=== PATIENT | female | born 1990 ===

== ENCOUNTER 2023-01-03 08:00 | Outpatient (CLI) | payer MEDICAID ==
[2023-01-03 18:25] LABS: H. PYLORIS ANTIGEN STL POSITIVE (Negative)
[2023-01-05 16:08] LABS: GIARDIA LAMBLIA AG EIA Negative (Negative)
== END 2023-01-03 23:59 | disposition home or self-care (01) ==
LOC: LAB.R 08:00
PROVIDERS: ATTEND Physician Assistant Medical
DX: R19.7 Diarrhea, unspecified (principal); R10.9 Unspecified abdominal pain
CPT/HCPCS: 87045; 87046; 87177; 87209; 87329; 87338; 87427; 87493

== ENCOUNTER 2023-01-03 12:18 | Outpatient (CLI) | payer MEDICAID ==
--- NOTE | 2023-01-03 13:37 | XRAY Report ---
PROCEDURE: Abdomen 2 View X-Ray INDICATIONS: ABDOMINAL PAIN TECHNIQUE: 2 views of the abdomen were acquired. COMPARISON: None. FINDINGS: Surgical changes and devices: None. Bowel: No pneumoperitoneum. The bowel gas pattern is normal. Stool load within normal limits. Soft tissues: No masses; visualized solid organ contours appear normal in size. No suspicious abdom inal calcifications. Bones: No suspicious bony abnormalities. IMPRESSION: There is a nonobstructive bowel gas pattern seen. If the symptoms persist or worsen, please consider a dedicated follow-up CT for further evaluation. Reviewed by: Faisal Au MD on 01/03/2023 12:36 PM [facility] Approved by: Faisal Au MD on 01/03/2023 12:36 PM [facility] Station ID: [id number]
== END 2023-01-03 23:59 | disposition home or self-care (01) ==
LOC: DI.S 12:18
PROVIDERS: ATTEND Physician Assistant Medical
DX: R10.9 Unspecified abdominal pain (principal)

== ENCOUNTER 2023-02-13 10:02 | Emergency (ER) | payer MEDICAID ==
[2023-02-13 10:20] VITALS: O2SAT 100
--- NOTE | 2023-02-13 11:33 | ED Physician Documentation ---
History of Present Illness - Stated complaint Stated Complaint: HEAD INJ/PX - Chief complaint Chief Complaint: Trauma Hd/Nk - Additonal information Additional information: History obtained with a Yi language teacher. History and exam was exceedingly difficult to obtain. 32-year-old female presents emergency department for evaluation of headache and right-sided hearing loss. Was in the shower yesterday when she slipped and fell . She struck the right side of her head. States that she vomited immediately thereafter but has had muffled or near loss of hearing since some tinnitus. Headache has not resolved. She did take Motrin and Tylenol. No history of similar. Currently taking a course of medications for a stomach infection that I believed to be H. pylori based on the medications she is taking Review of Systems Constitutional: denies: Fever Ears: reports: Loss of hearing, Tinnitus/ringing (right ear). denies: Ear pain, Drainage/discharge Nose: reports: Reviewed and negative Throat: reports: Reviewed and negative GI: reports: Vomiting Neurologic: reports: Headache PD PAST MEDICAL HISTORY - Past Medical History Past Medical History: Yes GI: GERD - Past Surgical History Past Surgical History: No - Present Medications Home Medications: Ambulatory Orders Medication Instructions Recorded Confirmed Amoxicillin 1,000 mg PO BID 02/13/23 02/13/23 Clarithromycin [Biaxin] 500 mg PO BID 02/13/23 02/13/23 Omeprazole Magnesium 20 mg PO DAILY 02/13/23 02/13/23 - Allergies Allergies/Adverse Reactions: Allergies Allergy/AdvReac Type Severity Reaction Status Date / Time No Known Drug Allergies Allergy Verified 02/13/23 10:14 - Social History Does the pt smoke?: No Smoking Status: Never smoker Does the pt drink ETOH?: No Does the pt have substance abuse?: No PD ED PE NORMAL - General General: Alert and oriented X 3, No acute distress, Well developed/nourished - HEENT HEENT: Atraumatic, PERRL, EOMI, Ears normal, Moist mucous membranes, Other (No mastoid tenderness elicited. Negative hemotympanums, groves sign and raccoon eyes) - Neck Neck: Supple, no meningeal sign, No adenopathy - Cardiac Cardiac: RRR - Respiratory Respiratory: Clear bilaterally - Abdomen Abdomen: Normal bowel sounds, Soft - Derm Derm: Warm and dry - Extremities Extremities: No deformity - Neuro Neuro: Alert and oriented X 3, membership solicitor 2-12 intact, No motor deficit, No sensory deficit, Normal speech, Other (Normal gait, normal heel-toe, normal finger-nose) Eye Opening: Spontaneous Motor: Obeys Commands Verbal: Oriented GCS Score: 15 Results - Vitals Vitals: Vital Signs - 24 hr 02/13/23 10:08 Temperature 37.3 C Heart Rate 83 Respiratory 16 Rate Blood Pressure 136/68 H O2 Saturation 100 Oxygen O2 Source Room air - Labs Labs: Laboratory Tests 02/13/23 11:39 Urine HCG, Qual NEGATIVE - Rads (name of study) CT head Relevant Findings:: Final report received (no acute intracranial process) IAC CT Relevant Findings:: Final report received (Normal CT of the temporal bones. No fracture.) PD Medical Decision Making - ED course Complexity details: reviewed results, re-evaluated patient, d/w patient ED course: 32-year-old female presents emergency department for evaluation of acute onset headache and sudden loss of hearing in the right ear after she fell in the shower yesterday. No history of similar in the past. Here in the emergency department she had an unremarkable neurological exam sparing some muffled and loss of hearing in the right ear. The history and mechanism was suggestive possibly of disruption of the auditory canal, mastoid bones. Other differentials include inflammation around the auditory nerve. I did do CT of the head without contrast that showed no obvious abnormalities. An IAC also showed no obvious broken bones. I discussed the CT imaging findings with the patient and her . I recommended follow-up with the ear nose throat if the symptoms do not gently improve over the next week. Otherwise recommended Tylenol and ibuprofen for discomfort. The usual emergent return precautions were discussed for worsening symptoms. Departure - Departure Disposition: 01 Home, Self Care Clinical Impression: Hearing loss associated with syndrome of right ear Fall Qualifiers: Encounter type: initial encounter Qualified Code(s): W19.XXXA - Unspecified fall, initial encounter Headache Qualifiers: Headache type: unspecified Headache chronicity pattern: acute headache Intractability: not intractable Qualified Code(s): R51.9 - Headache, unspecified Condition: Stable Record reviewed to determine appropriate education?: Yes Comments: you fell in the shower and developed a headache with some hearing loss. The CTs of your head and around your auditory or ear bones were normal. Our hope is that the headache and loss of hearing will improve over the next week. If it does not please follow closely with your primary doctor and request referral to an ear nose throat doctor. Please take Tylenol or ibuprofen for discomfort. Return to the ER for any fainting episodes, uncontrolled vomiting or difficulty walking Se jessica en la ducha y desarroll dolor de ashley con algo de prdida auditiva. Las tomografas computarizadas de la ashley y alrededor de los huesos auditivos o del odo concepción normales. Nuestra gloria es que el dolor de ashley y la prdida de audicin mejoren sangeetha la prxima semana. Si no es as, siga de cerca con mcclellan mdico de cabecera y solicite la derivacin a un otorrinolaringlogo. [place] Tylenol o ibuprofeno para las molestias. Regrese a la bushra de emergencias por cualquier episodio de desmayos, vmitos incontrolables o dificultad para caminar Forms: PCP List
[2023-02-13 11:48] LABS: HCG UR QUAL NEGATIVE
--- NOTE | 2023-02-13 13:20 | CT Report ---
PROCEDURE: HEAD WO INDICATIONS: loss of hearing after fall TECHNIQUE: Noncontrast 4.5 mm thick angled axial sections acquired from the foramen magnum to the vertex. For r adiation dose reduction, the following was used: automated exposure control, adjustment of mA and/or kV according to patient size. COMPARISON: None. FINDINGS: Image quality: Excellent. CSF spaces: Basal cisterns are patent. No extra-axial fluid collections. Ventricles are normal in size and shape. Brain: No midline shift. No intracranial masses or hemorrhage. Martinez-white matter interface is norm al. Skull and face: Calvarium and visualized facial bones are intact, without suspicious lesions. Sinuses: Visualized sinuses and mastoids are clear. IMPRESSION: ] 1. No acute intracranial process. Reviewed by: Jerica Giraldo MD on 02/13/2023 1:18 PM PST Approved by: Jerica Giraldo MD on 02/13/2023 1:18 PM [facility] Station ID: [id number]
--- NOTE | 2023-02-13 13:59 | CT Report ---
PROCEDURE: CT temporal bones without contrast INDICATIONS: 32-year-old female with traumatic right-sided hearing loss COMPARISON: None. TECHNIQUE: Helical axial CT of the temporal bones was obtained without contrast and reformatted in m ultiple planes. Radiation dose reduction was achieved using automated exposure control and adjustmen t of mA and/or kV according to patient size FINDINGS: Right Temporal Bone: External auditory canal: Patent without debris. Scutum is sharp. Ossicular chain and middle ear: Ossicular chain intact. Prussak space and sinus tympani are clear. Oval and round window niche are clear. Tegmen tympani covers both the middle and inner ear without erosions. Inner ear otic capsule: Cochlea, semicircular canals, and vestibular capsules are appropriately form ed and covered. Normal bony mineralization noted without lytic foci. Vestibular and cochlear aquedu cts unremarkable. Facial nerve canal: Unremarkable. Internal auditory canal: Well-defined without expansion or erosion. Carotid canal and jugular bulb: Well defined. No high-riding jugular bulb. Mastoid air cells: Clear. Aditus ad antrum unremarkable. Tegmen mastoideum intact. Temporomandibular joint: Unremarkable Left Temporal Bone: External auditory canal: Patent without debris. Scutum is sharp. Ossicular chain and middle ear: Ossicular chain intact. Prussak space and sinus tympani are clear. Oval and round window niche are clear. Tegmen tympani covers both the middle and inner ear without erosions. Inner ear otic capsule: Cochlea, semicircular canals, and vestibular capsules are appropriately form ed and covered. Normal bony mineralization noted without lytic foci. Vestibular and cochlear aquedu cts unremarkable. Facial nerve canal: Unremarkable. Internal auditory canal: Well-defined without expansion or erosion. Carotid canal and jugular bulb: Well defined. No high-riding jugular bulb. Mastoid air cells: Clear. Aditus ad antrum unremarkable. Tegmen mastoideum intact. Temporomandibular joint: Unremarkable IMPRESSION: Normal CT of the temporal bones. No fracture Reviewed by: Tye Hamilton MD on 02/13/2023 12:58 PM [place] Approved by: Tye Hamilton MD on 02/13/2023 12:58 PM [place] Station ID: [id number]
[2023-02-13 14:37] VITALS: BP 136/78
== END 2023-02-13 14:31 | disposition home or self-care (01) ==
LOC: ED 10:02
DX: R51.9 Headache, unspecified (principal); H91.91 Unspecified hearing loss, right ear
CPT/HCPCS: 81025; 99283; 99284

== ENCOUNTER 2023-03-01 00:42 | Emergency (ER) | payer MEDICAID ==
[2023-03-01] MEDS ORDERED: SODIUM CHLORIDE 0.9% 2,177.25 ML IV STA (01:14)
[2023-03-01] MEDS ORDERED: KETOROLAC 30 MG/ML VIAL IVP STA (01:16)
[2023-03-01] MEDS ORDERED: ACETAMINOPHEN 325 MG TABLET PO STA (01:16)
[2023-03-01 01:27] LABS: BASOPHILS # (AUTO) 0.1 10^3/uL (0.0-0.1); BASOPHILS % (AUTO) 0.4 %; EOSINOPHILS # (AUTO) 0.1 10^3/uL (0.0-0.7); EOSINOPHILS % (AUTO) 0.8 %; HCT - HEMATOCRIT 39.7 % (37.0-47.0); HGB - HEMOGLOBIN 13.3 g/dL (12.0-16.0); LYMPHOCYTES # (AUTO) 1.8 10^3/uL (1.5-3.5); LYMPHOCYTES % (AUTO) 10.4 %; MEAN CORPUSCULAR HEMOGLOBIN 28.5 pg (27.0-31.0); MEAN CORPUSCULAR HGB CONC 33.5 g/dL (32.0-36.0); MEAN PLATELET VOLUME 8.7 fL (7.9-10.8); MONOCYTES # (AUTO) 0.4 10^3/uL (0.0-1.0); NEUTROPHILS # (AUTO) 14.6 10^3/uL (1.5-6.6); NEUTROPHILS % (AUTO) 85.7 %; NRBC ABSOLUTE COUNT (AUTO) 0.02 x10^3/uL; NUCLEATED RED BLOOD CELLS AUTO 0.1 /100WBC; PLT - PLATELET COUNT 225 10^3/uL (130-450); RED BLOOD COUNT 4.67 10^6/uL (4.20-5.40); RED CELL DISTRIBUTION WIDTH 13.2 % (12.0-15.0); WHITE BLOOD COUNT 17.1 x10^3/uL (4.8-10.8)
[2023-03-01] MEDS ORDERED: ONDANSETRON 4 MG/2 ML VIAL IVP STA (01:28)
[2023-03-01] MEDS ORDERED: FAMOTIDINE 20 MG/2 ML VIAL IVP STA (01:28)
--- NOTE | 2023-03-01 01:28 | ED Physician Documentation ---
PD HPI ABD PAIN - Stated complaint Stated Complaint: BODY PX - Chief complaint Chief Complaint: Abd Pain - History obtained from History obtained from: Patient - Additional information Additional information: 32yF previously health except for "stomach infection" 2 months ago requiring antibiotic course, p/w diffuse abdominal pain radiating to the back, fever/chills, n/v/d and dysuria since yesterday afternoon. denies chest pain, soa, uri symptoms. PD PAST MEDICAL HISTORY - Past Medical History Past Medical History: No GI: GERD - Past Surgical History Past Surgical History: No - Present Medications Home Medications: Ambulatory Orders Medication Instructions Recorded Confirmed Amoxicillin 1,000 mg PO BID 02/13/23 02/13/23 Clarithromycin [Biaxin] 500 mg PO BID 02/13/23 02/13/23 Omeprazole Magnesium 20 mg PO DAILY 02/13/23 02/13/23 Cefpodoxime Proxetil [Vantin] 200 mg PO Q12H #28 tablet 03/01/23 Ketorolac [Toradol] 10 mg PO Q6H PRN #20 tablet 03/01/23 Ondansetron Odt [Zofran] 4 mg TL Q6H PRN #10 tablet 03/01/23 - Allergies Allergies/Adverse Reactions: Allergies Allergy/AdvReac Type Severity Reaction Status Date / Time No Known Drug Allergies Allergy Verified 02/13/23 10:14 - Social History Does the pt smoke?: No Smoking Status: Never smoker Does the pt drink ETOH?: No Does the pt have substance abuse?: No PD ED PE NORMAL - Vitals Vital signs reviewed: Yes - General General: Alert and oriented X 3, Well developed/nourished, Other (uncomfortable appearing) - HEENT HEENT: Atraumatic, PERRL, EOMI, Moist mucous membranes, Pharynx benign - Neck Neck: Supple, no meningeal sign - Cardiac Cardiac: RRR - Respiratory Respiratory: No respiratory distress, Clear bilaterally - Abdomen Abdomen: Other (diffusely ttp) - Derm Derm: Other (sweaty and flushed) Results - Vitals Vitals: Vital Signs - 24 hr 03/01/23 03/01/23 03/01/23 01:05 01:19 01:44 Temperature 37.9 C Heart Rate 147 H 127 H 120 H Respiratory 24 38 H 36 H Rate Blood Pressure 123/69 117/73 O2 Saturation 99 99 99 11/30/23 11/30/23 11/30/23 02:14 02:44 04:00 Temperature 98.8 C H Heart Rate 103 H 111 H 103 H Respiratory 28 H 28 H 25 H Rate Blood Pressure 113/68 114/69 97/62 O2 Saturation 100 100 100 03/01/23 03/01/23 04:30 05:00 Temperature Heart Rate 110 H 100 Respiratory 26 H 29 H Rate Blood Pressure 99/72 98/66 O2 Saturation 99 99 Oxygen O2 Source Room air - Labs Labs: Laboratory Tests 03/01/23 03/01/23 03/01/23 01:15 01:15 01:19 WBC 17.1 H RBC 4.67 Hgb 13.3 Hct 39.7 MCV 85.0 MCH 28.5 MCHC 33.5 RDW 13.2 Plt Count 225 MPV 8.7 Neut # (Auto) 14.6 H Lymph # (Auto) 1.8 [place] # (Auto) 0.4 Eos # (Auto) 0.1 Baso # (Auto) 0.1 Absolute Nucleated RBC 0.02 Nucleated RBC % 0.1 Sodium Potassium Chloride Carbon Dioxide Anion Gap BUN Creatinine Estimated GFR (MDRD) Glucose Lactic Acid Calcium Total Bilirubin AST ALT Alkaline Phosphatase Total Protein Albumin Globulin Albumin/Globulin Ratio Urine Color YELLOW Urine Clarity HAZY Urine pH 6.0 Ur Specific [place] 1.020 Urine Protein 100 H Urine Glucose (UA) NEGATIVE Urine Ketones NEGATIVE Urine Occult Blood MODERATE H Urine Nitrite POSITIVE H Urine Bilirubin NEGATIVE Urine Urobilinogen 1 (NORMAL) Ur Leukocyte Esterase SMALL H Urine RBC 0-5 Urine WBC >25 H Ur Squamous Epith Cells FEW Squamous Urine Bacteria Moderate H Urine Culture Comments INDICATED Urine HCG, Qual NEGATIVE 03/01/23 03/01/23 01:19 01:19 WBC RBC Hgb Hct MCV MCH MCHC RDW Plt Count MPV Neut # (Auto) Lymph # (Auto) [place] # (Auto) Eos # (Auto) Baso # (Auto) Absolute Nucleated RBC Nucleated RBC % Sodium 135 Potassium 2.9 L Chloride 106 Carbon Dioxide 19 L Anion Gap 10.0 BUN 15 Creatinine 0.7 Estimated GFR (MDRD) 98 Glucose 164 H Lactic Acid 1.7 Calcium 8.9 Total Bilirubin 1.0 AST 47 H ALT 62 H Alkaline Phosphatase 175 H Total Protein 6.5 Albumin 3.7 Globulin 2.8 Albumin/Globulin Ratio 1.3 Urine Color Urine Clarity Urine pH Ur Specific [place] Urine Protein Urine Glucose (UA) Urine Ketones Urine Occult Blood Urine Nitrite Urine Bilirubin Urine Urobilinogen Ur Leukocyte Esterase Urine RBC Urine WBC Ur Squamous Epith Cells Urine Bacteria Urine Culture Comments Urine HCG, Qual PD Medical Decision Making - ED course ED course: 32yF presents to the ed with n/v/d and dysuria with abdominal pain radiating to the back and fever at triage. cbc, abdominal panel, lactic acid, blood cultures, u/a and hcg ordered as well as CT a/p. provided patient with 30cc/kg ivf, IV toradol with pain relief, oral tylenol for fever, zofran with relief of nausea. 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 rocephin IV ordered. WBC 17.1, leukocytosis 2/2 uti. also with low potassium of 2.9 likely 2/2 vomiting, which was repleted with oral and IV potassium. CT showed pyelonephritis and pyelitis as well as diverticulosis. 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 antibiotics, pain meds, nausea meds sent to pharmacy. return precautions given. Departure - Departure Clinical Impression: Pyelonephritis, Pyelitis, Diverticulosis Condition: Stable Instructions: Pyelonephritis Dc, ED Diverticulosis Prescriptions: Ketorolac [Toradol] 10 mg PO Q6H PRN #20 tablet PRN Reason: Pain Cefpodoxime Proxetil [Vantin] 200 mg PO Q12H #28 tablet Ondansetron Odt [Zofran] 4 mg TL Q6H PRN #10 tablet PRN Reason: Nausea / Vomiting Comments: You were seen in the emergency department for kidney infection. Antibiotics, pain medicine, and nausea medicine were sent electronically to [facility] in [place]. Please follow-up with your primary care provider and return to the emergency department if you have any new or worsening symptoms or other concerns. Lo atendieron en el departamento de emergencias por trini infeccin renal. Se enviaron electrnicamente antibiticos, analgsicos y medicamentos para las nuseas a [facility] en [place]. Christine un seguimiento con mcclellan proveedor de atencin primaria y regrese al departamento de emergencias si tiene algn sntoma nuevo o que empeora u otras inquietudes. Forms: PCP List
[2023-03-01 01:33] LABS: BILIRUBIN,URINE NEGATIVE (NEGATIVE); GLUCOSE, URINE (UA) NEGATIVE (NEGATIVE); KETONES,URINE (UA) NEGATIVE (NEGATIVE); LEUKOCYTE ESTERASE, URINE SMALL (NEGATIVE); NITRITE,URINE POSITIVE (NEGATIVE); OCCULT BLOOD,URINE MODERATE (NEGATIVE); PROTEIN,URINE 100 mg/dL (NEGATIVE); UROBILINOGEN,URINE 1 (NORMAL) E.U./dL (NORMAL)
[2023-03-01 01:34] LABS: CLARITY,URINE HAZY (CLEAR)
[2023-03-01 01:40] LABS: BACTERIA,URINE Moderate /HPF (None Seen); HCG UR QUAL NEGATIVE; RBC,URINE 0-5 /HPF (0-5); SQUAMOUS EPITHELIAL CELL,UR FEW Squamous (<= Few); WBC,URINE >25 /HPF (0-5)
[2023-03-01 01:45] LABS: ALBUMIN 3.7 g/dL (3.2-5.5)
[2023-03-01 02:31] LABS: ALBUMIN/GLOBULIN RATIO 1.3 (1.0-2.2); CALCIUM 8.9 mg/dL (8.5-10.3); CREATININE 0.7 mg/dL (0.6-1.3); POTASSIUM 2.9 mmol/L (3.5-4.5); TOTAL PROTEIN 6.5 g/dL (6.4-8.9)
[2023-03-01] MEDS ORDERED: POTASSIUM CHLORIDE 20 MEQ/15 ML UDC PO STA (02:31)
[2023-03-01] MEDS ORDERED: cefTRIAXone 2 GM in SODIUM CHLORIDE 0.9% MINIBAG 100 ML IV STA (02:32)
[2023-03-01] MEDS ORDERED: POTASSIUM CHLOR 10 MEQ/100 ML 10 MEQ/100 ML BAG IV STA (02:32)
[2023-03-01] MEDS ORDERED: SODIUM CHLORIDE 0.9% 1,000 ML IV STA ×2 (03:29→05:15)
[2023-03-01] MEDS ORDERED: iohexoL-300 100 ML VIAL IVP ONE (04:23)
[2023-03-01] MEDS ORDERED: MORPHINE 2 MG/ML CARPUJECT IVP STA (04:40)
[2023-03-01 07:03] VITALS: BP 102/69; O2SAT 98
--- NOTE | 2023-03-01 10:07 | CT Report ---
PROCEDURE: ABDOMEN/PELVIS W INDICATIONS: diffuse abdominal pain, dysuria, n/v/d CONTRAST: Omni 300 100ml TECHNIQUE: After the administration of intravenous contrast, 5 mm thick sections acquired from the diaphragms to the symphysis. 5 mm thick coronal and sagittal reformats were acquired. For radiation dose reducti on, the following was used: automated exposure control, adjustment of mA and/or kV according to avis ent size. COMPARISON: None FINDINGS: Image quality: Excellent. Lung bases and heart: Unremarkable. Liver: Moderate diffuse hepatic steatosis. Gallbladder and biliary tree: No radiopaque stones or wall thickening. No biliary dilation. Spleen: No splenomegaly. Pancreas: No pancreatic ductal dilation. Adrenals: No adrenal nodule. Kidneys and ureters: The right kidney has inhomogeneous enhancement, with vague areas of hypoenhancem ent suggesting probable acute pyelonephritis. There is mild enhancement of the right ureter suggestin g ureteritis. Left kidney and ureter are unremarkable. The bladder is unremarkable. Bowel and peritoneum: No bowel distension. No pathologic free fluid. Lymph nodes: No central or retroperitoneal adenopathy. Vessels: No infrarenal aortic aneurysm. PELVIS Reproductive organs: Unremarkable. Bladder: No abnormal wall thickening, accounting for underdistension. Pelvic lymph nodes: No pelvic adenopathy by size criteria. Bones: No aggressive osseous abnormality. Other: No significant ventral or inguinal hernia. IMPRESSION: 1. Right pyelonephritis and ureteritis. 2. Moderate diffuse hepatic steatosis. Findings are concordant with preliminary interpretation provided by [facility]. Reviewed by: Joshua Couch MD on 03/01/2023 10:06 AM [facility] Approved by: Joshua Couch MD on 03/01/2023 10:06 AM PST Station ID: [id number]
== END 2023-03-01 07:07 | disposition home or self-care (01) ==
LOC: ED 00:42
DX: N12 Tubulo-interstitial nephritis, not specified as acute or chronic (principal); K57.90 Diverticulosis of intestine, part unspecified, without perforation or abscess without bleeding
CPT/HCPCS: 36415; 80053; 81001; 81025; 83605; 85025; 87040; 87077; 87086; 87150; 87181; 96365; 96366; 96367; 96375; 99285

== ENCOUNTER 2023-03-01 16:49 | Inpatient (IN) | payer MEDICAID ==
[2023-03-01] MEDS ORDERED: MEROPENEM 1 GM in SODIUM CHLORIDE 0.9% MINIBAG 100 ML IV STA (17:08)
[2023-03-01] MEDS ORDERED: SODIUM CHLORIDE 0.9% 1,000 ML IV STA (17:17)
[2023-03-01] MEDS ORDERED: HYDROmorphone 1 MG/ML CARPUJECT IVP STA (17:17)
--- NOTE | 2023-03-01 17:20 | ED Physician Documentation ---
History of Present Illness - Stated complaint Stated Complaint: BACK PX - Chief complaint Chief Complaint: Back Pain - History obtained from History obtained from: Patient - History of Present Illness Pain level max: 8 Pain level now: 8 - Additonal information Additional information: 32-year-old female, Chinese-speaking presents to the emergency department with right-sided flank pain for several days. Seen here last night and diagnosed with pyelonephritis. Had a CT scan at that time as well. Heart rate had decreased and fever had resolved last night. Her blood culture is positive for E. coli with ESBL. 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 Therefore she was called back to the emergency department. She is still having pain and fever. Review of Systems Constitutional: reports: Fever, Chills Throat: denies: Sore throat Cardiac: denies: Chest pain / pressure, Palpitations Respiratory: denies: Cough GI: reports: Nausea, Vomiting. denies: Diarrhea, Hematemesis, Bloody / black stool Skin: denies: Rash Musculoskeletal: denies: Neck pain, Back pain, Extremity pain Neurologic: denies: Headache PD PAST MEDICAL HISTORY - Past Medical History Past Medical History: Yes GI: GERD - Past Surgical History Past Surgical History: No - Present Medications Home Medications: Ambulatory Orders Medication Instructions Recorded Confirmed Amoxicillin 1,000 mg PO BID 02/13/23 02/13/23 Clarithromycin [Biaxin] 500 mg PO BID 02/13/23 02/13/23 Omeprazole Magnesium 20 mg PO DAILY 02/13/23 02/13/23 Cefpodoxime Proxetil [Vantin] 200 mg PO Q12H #28 tablet 03/01/23 Ketorolac [Toradol] 10 mg PO Q6H PRN #20 tablet 03/01/23 Ondansetron Odt [Zofran] 4 mg TL Q6H PRN #10 tablet 03/01/23 - Allergies Allergies/Adverse Reactions: Allergies Allergy/AdvReac Type Severity Reaction Status Date / Time No Known Drug Allergies Allergy Verified 03/01/23 17:06 - Living Situation Living Situation: reports: With family Living Arrangement: reports: At home - Social History Does the pt smoke?: No Smoking Status: Never smoker Does the pt drink ETOH?: No Does the pt have substance abuse?: No PD ED PE NORMAL - Vitals Vital signs reviewed: Yes - General General: Alert and oriented X 3, No acute distress - HEENT HEENT: PERRL, Moist mucous membranes - Neck Neck: Supple, no meningeal sign - Cardiac Cardiac: RRR, Strong equal pulses - Respiratory Respiratory: No respiratory distress, Clear bilaterally - Abdomen Abdomen: Soft, Non tender, Non distended - Back Back: Other (Right-sided CVA tenderness. No left CVA tenderness) - Derm Derm: Warm and dry - Extremities Extremities: No edema, No calf tenderness / cord - Neuro Neuro: Alert and oriented X 3 - Psych Psych: Normal mood, Normal affect Results - Vitals Vitals: Vital Signs - 24 hr 03/01/23 16:50 Temperature 38.2 C H Heart Rate 120 H Respiratory 17 Rate Blood Pressure 126/77 O2 Saturation 100 Oxygen O2 Source Room air - Labs Labs: Laboratory Tests 03/01/23 03/01/23 03/01/23 17:17 17:17 17:17 WBC 21.4 H RBC 4.21 Hgb 12.0 Hct 36.9 L MCV 87.6 MCH 28.5 MCHC 32.5 RDW 13.9 Plt Count 127 L MPV 9.7 Neut # (Auto) Not Reportable Lymph # (Auto) Not Reportable [place] # (Auto) Not Reportable Eos # (Auto) Not Reportable Baso # (Auto) Not Reportable Absolute Nucleated RBC Not Reportable Total Counted 100 Band Neuts % (Manual) 7 Abnorm Lymph % (Manual) 0 Nucleated RBC % Not Reportable Neutrophils # (Manual) 17.5 H Lymphocytes # (Manual) 3.4 Monocytes # (Manual) 0.4 Eosinophils # (Manual) 0.0 Basophils # (Manual) 0.0 Differential Comment MANUAL DIFFERENTIAL Platelet Estimate DECREASED (<130,000) Platelet Morphology NORMAL APPEARANCE RBC Morph Micro Appear NORMAL APPEARANCE Sodium 134 L Potassium 3.7 Chloride 108 Carbon Dioxide 20 L Anion Gap 6.0 BUN 7 Creatinine 0.6 Estimated GFR (MDRD) 117 Glucose 132 H Lactic Acid 2.0 Calcium 8.5 Total Bilirubin 0.7 AST 33 ALT 51 Alkaline Phosphatase 148 H Total Protein 5.9 L Albumin 3.3 Globulin 2.6 Albumin/Globulin Ratio 1.3 Lipase 25 Procalcitonin Immunoas Urine Color Urine Clarity Urine pH Ur Specific [place] Urine Protein Urine Glucose (UA) Urine Ketones Urine Occult Blood Urine Nitrite Urine Bilirubin Urine Urobilinogen Ur Leukocyte Esterase Urine RBC Urine WBC Ur Squamous Epith Cells Amorphous Sediment Urine Bacteria Ur Microscopic Review Urine Culture Comments 03/01/23 03/01/23 17:17 17:22 WBC RBC Hgb Hct MCV MCH MCHC RDW Plt Count MPV Neut # (Auto) Lymph # (Auto) [place] # (Auto) Eos # (Auto) Baso # (Auto) Absolute Nucleated RBC Total Counted Band Neuts % (Manual) Abnorm Lymph % (Manual) Nucleated RBC % Neutrophils # (Manual) Lymphocytes # (Manual) Monocytes # (Manual) Eosinophils # (Manual) Basophils # (Manual) Differential Comment Platelet Estimate Platelet Morphology RBC Morph Micro Appear Sodium Potassium Chloride Carbon Dioxide Anion Gap BUN Creatinine Estimated GFR (MDRD) Glucose Lactic Acid Calcium Total Bilirubin AST ALT Alkaline Phosphatase Total Protein Albumin Globulin Albumin/Globulin Ratio Lipase Procalcitonin Immunoas 12.53 H* Urine Color YELLOW Urine Clarity HAZY Urine pH 7.0 Ur Specific [place] 1.020 Urine Protein 30 H Urine Glucose (UA) NEGATIVE Urine Ketones NEGATIVE Urine Occult Blood MODERATE H Urine Nitrite NEGATIVE Urine Bilirubin NEGATIVE Urine Urobilinogen 0.2 (NORMAL) Ur Leukocyte Esterase NEGATIVE Urine RBC TNTC H Urine WBC 11-25 H Ur Squamous Epith Cells FEW Squamous Amorphous Sediment Few Urine Bacteria Few Ur Microscopic Review INDICATED Urine Culture Comments INDICATED PD Medical Decision Making - ED course Complexity details: reviewed results, re-evaluated patient, considered differential, d/w patient ED course: 32-year-old female with pyelonephritis diagnosed last night, CT scan consistent with pyelonephritis as well last night. Had a positive blood culture with ESBL E. coli. Started on meropenem here. She is still having fevers. Blood cultures redrawn. We will admit the patient for IV antibiotics. Not in severe sepsis at this time. She is tachycardic, not hypotensive. Pain well- controlled. Discussed the case with Dr. Salazar, hospitalist who accepts This document was made in part using voice recognition software. While efforts are made to proofread this document, sound alike and grammatical errors may occur. Departure - Departure Disposition: 66 [facility] DC/Xfer Clinical Impression: Pyelonephritis, Bacteremia Condition: Stable
--- NOTE | 2023-03-01 17:34 | HISTORY & PHYSICAL EXAMINATION ---
Chief Complaint - Chief Complaint Chief Complaint: Called back because blood cultures turned positive History of Present Illness - Admitted From Admitted From:: ED - History Obtained From History obtained from: ED provider and chart review - History of Present Illness HPI Comment/Other: The initial history was obtained with a excelsior cutter. I was able to speak to her who is bedside who interpreted for us, which the patient agreed to. This is a 32-year-old [place]ish-speaking female who has a negative past history. She presented to the ER last night with complaints of several days of abdominal pain, R flank pain, dysuria and fever and chills. She was tachycardic and febrile. She received defervesced and heart rate improved with iv fluids and work-up showed WBC of 17, normal Lactic Acid of 1.7 then and R-sided pyelonephritis and ureteritis, with no stone on CT imaging. She had cultures drawn, was given Rocephin and was discharged to take Cefpodoxime. Today 2 of 2 blood cultures turned positive for E. coli. It is a Class A ESBL-producing E. coli that has CTX-M gene. Patient was called back to the ER today. She had vomited one today, is still having R flank pain and still having fever of 39.2 and HR is 120, WBC 21.4 w/ 17.5% neutr, Lactic Acid is normal at 2.0, but Procalcitonin is very high at 12. She was recultured and administered empiric iv Meropenem. The ED provider then spoke to me about this patient. She will be admitted for treating ESBL E. coli bacteremia from a pyelonephritis source. History - Past Medical History GI: reports: GERD - Family & Social History Living arrangement: At home Living Situation: With spouse/s.o. Meds/Allgy - Home Medications Home Medications: Ambulatory Orders Medication Instructions Recorded Confirmed Amoxicillin 1,000 mg PO BID 02/13/23 02/13/23 Clarithromycin [Biaxin] 500 mg PO BID 02/13/23 02/13/23 Omeprazole Magnesium 20 mg PO DAILY 02/13/23 02/13/23 Cefpodoxime Proxetil [Vantin] 200 mg PO Q12H #28 tablet 03/01/23 Ketorolac [Toradol] 10 mg PO Q6H PRN #20 tablet 03/01/23 Ondansetron Odt [Zofran] 4 mg TL Q6H PRN #10 tablet 03/01/23 - Allergies Allergies/Adverse Reactions: Allergies Allergy/AdvReac Type Severity Reaction Status Date / Time No Known Drug Allergies Allergy Verified 03/01/23 17:06 Review of Systems - Constitutional Constitutional: reports: Fever, Chills - Gastrointestinal Gastrointestinal: reports: Abdominal pain, Nausea, Vomiting - Genitourinary Genitourinary: reports: Flank pain - All Other Systems All Other Systems: reports: Other (As in HPI) Exam - Vital Signs Vital Signs: Vital Signs x48h Temp Pulse Resp BP Pulse Ox 03/01/23 16:50 38.2 C H 120 H 17 126/77 100 - Physical Exam General Appearance: positive: Mild distress (from flank pain) Eyes Bilateral: positive: No lid inflammation ENT: positive: Dry mucous membranes Neck: positive: Nml inspection, No JVD Respiratory: positive: No respiratory distress, Breath sounds nml Cardiovascular: positive: Regular rate & rhythm, No murmur, Tachycardia Abdomen: positive: Non-tender, Nml bowel sounds, No distention, Other (R flank tenderness) Back: positive: CVA tenderness (R) Skin: positive: Warm, Dry Extremities: positive: Non-tender, No pedal edema Neurologic/Psychiatric: positive: CN's nml (2-12), Motor nml Sepsis Event Note (H) - Evaluation Current Stage of Sepsis: Sepsis - Sepsis Criteria Sepsis Criteria: Recorded Heart Rate greater than 90 bpm, WBC count greater than 12,000 or less than 4000 Conclusion/Plan - Problem List (1) Bacteremia Conclusion/Plan: Her blood cultures turn positive, that were drawn last night about midnight. The patient was called back in for IV antibiotics She nearly met criteria for sepsis w/ tachycardia and elevated WBC, but Lactic acid normal and fever was not >38.3 initially Plan: Will begin empiric IV meropenem 1 g IV every 8 Await blood culture sensitivity to tailor antibiotics We will repeat her blood cultures eventually to assure she has no growth on antibiotic treatment We will start IV fluids given the fever Will order Tylenol and Motrin for fever reduction Follow BMP, Procalcitonin and CBC labs daily (2) ESBL (extended spectrum beta-lactamase) producing bacteria infection Conclusion/Plan: Her E. coli ob blood cx is reported to be a Class A ESBL-producing E. coli that has CTX-M gene. The report states recommend infectious disease consult Plan: Continue with empiric meropenem and await sensitivity results to tailor antibiotics We will obtain infectious disease consult as was advised by the microbiology lab. (3) Pyelonephritis Conclusion/Plan: As per findings on CT imaging Plan: We will give pain medications of Tylenol and Dilaudid prn and Pyridium prn dysuria Treat the underlying infection - Lab Results Fish Bones: 03/02/23 05:25 03/02/23 05:25 - Diagnostic Imaging Results Diagnostic Imaging Results: positive: Final report reviewed - Other Other Results/Comments: Attestation: The patient is expected to be hospitalized for greater than 2 midnights and is expected to be discharged or transferred to another facility within 96 hours: Yes.
[2023-03-01 17:38] LABS: BASOPHILS % (AUTO) 0.6 %; EOSINOPHILS % (AUTO) 0.5 %; HCT - HEMATOCRIT 36.9 % (37.0-47.0); LYMPHOCYTES % (AUTO) 10.1 %; MEAN CORPUSCULAR HEMOGLOBIN 28.5 pg (27.0-31.0); MEAN CORPUSCULAR HGB CONC 32.5 g/dL (32.0-36.0); MEAN CORPUSCULAR VOLUME 87.6 fL (81.0-99.0); MEAN PLATELET VOLUME 9.7 fL (7.9-10.8); MONOCYTES % (AUTO) 2.4 %; NEUTROPHILS % (AUTO) 85.4 %; PLT - PLATELET COUNT 127 10^3/uL (130-450); RED BLOOD COUNT 4.21 10^6/uL (4.20-5.40); RED CELL DISTRIBUTION WIDTH 13.9 % (12.0-15.0); WHITE BLOOD COUNT 21.4 x10^3/uL (4.8-10.8)
[2023-03-01 17:39] LABS: BILIRUBIN,URINE NEGATIVE (NEGATIVE); GLUCOSE, URINE (UA) NEGATIVE (NEGATIVE); KETONES,URINE (UA) NEGATIVE (NEGATIVE); LEUKOCYTE ESTERASE, URINE NEGATIVE (NEGATIVE); NITRITE,URINE NEGATIVE (NEGATIVE); OCCULT BLOOD,URINE MODERATE (NEGATIVE); PROTEIN,URINE 30 mg/dL (NEGATIVE); UROBILINOGEN,URINE 0.2 (NORMAL) E.U./dL (NORMAL)
[2023-03-01 17:40] LABS: ABNORMAL LYMPHS % (MANUAL) 0 %
[2023-03-01 17:46] LABS: CLARITY,URINE HAZY (CLEAR)
[2023-03-01] MEDS: ACETAMINOPHEN 325 MG TABLET PO PRN ×2 (17:49→21:45)
[2023-03-01 17:52] LABS: AMORPHOUS SEDIMENT,UR Few /LPF; BACTERIA,URINE Few /HPF (None Seen); RBC,URINE TNTC /HPF (0-5); SQUAMOUS EPITHELIAL CELL,UR FEW Squamous (<= Few)
[2023-03-01] MEDS: SODIUM CHLORIDE FLUSH 0.9% 10 ML SYRINGE IVP PRN (17:56)
[2023-03-01 17:57] LABS: ALBUMIN 3.3 g/dL (3.2-5.5); ALBUMIN/GLOBULIN RATIO 1.3 (1.0-2.2); BILIRUBIN,TOTAL 0.7 mg/dL (0.2-1.0); CALCIUM 8.5 mg/dL (8.5-10.3); CREATININE 0.6 mg/dL (0.6-1.3); POTASSIUM 3.7 mmol/L (3.5-4.5); TOTAL PROTEIN 5.9 g/dL (6.4-8.9)
[2023-03-01 18:06] LABS: BAND NEUTROPHILS % (MANUAL) 7 %; DIFFERENTIAL COMMENT MANUAL DIFFERENTIAL; LYMPHOCYTES # (MANUAL) 3.4 10^3/uL (1.5-3.5); LYMPHOCYTES % (MANUAL) 16 %; MONOCYTES # (MANUAL) 0.4 10^3/uL (0.0-1.0); NEUTROPHILS # (MANUAL) 17.5 10^3/uL (1.5-6.6); PLATELET ESTIMATE, MANUAL DECREASED (<130,000) (NORMAL); PLATELET MORPHOLOGY NORMAL APPEARANCE (NORMAL); RBC MORPHOLOGY (MULTIPLE) NORMAL APPEARANCE (NORMAL)
[2023-03-01] MEDS: MEROPENEM 1 GM in SODIUM CHLORIDE 0.9% MINIBAG 100 ML IV SCH (18:49)
[2023-03-01] MEDS: DEXTROSE 5%-0.9% NACL 1,000 ML IV SCH (19:21)
[2023-03-01] MEDS: IBUPROFEN 600 MG TABLET PO PRN (19:28)
[2023-03-01] MEDS: SODIUM CHLORIDE FLUSH 0.9% 10 ML SYRINGE IVP SCH (23:52)
[2023-03-02] MEDS: MEROPENEM 1 GM in SODIUM CHLORIDE 0.9% MINIBAG 100 ML IV SCH ×3 (01:37→17:58)
[2023-03-02] MEDS: DEXTROSE 5%-0.9% NACL 1,000 ML IV SCH ×4 (05:00→20:28)
[2023-03-02 05:44] LABS: BASOPHILS # (AUTO) 0.1 10^3/uL (0.0-0.1); BASOPHILS % (AUTO) 0.4 %; EOSINOPHILS % (AUTO) 0.3 %; HCT - HEMATOCRIT 33.9 % (37.0-47.0); HGB - HEMOGLOBIN 11.1 g/dL (12.0-16.0); LYMPHOCYTES # (AUTO) 1.3 10^3/uL (1.5-3.5); LYMPHOCYTES % (AUTO) 10.4 %; MEAN CORPUSCULAR HEMOGLOBIN 28.9 pg (27.0-31.0); MEAN CORPUSCULAR HGB CONC 32.7 g/dL (32.0-36.0); MEAN CORPUSCULAR VOLUME 88.3 fL (81.0-99.0); MEAN PLATELET VOLUME 9.9 fL (7.9-10.8); MONOCYTES # (AUTO) 0.4 10^3/uL (0.0-1.0); MONOCYTES % (AUTO) 2.9 %; NEUTROPHILS # (AUTO) 10.8 10^3/uL (1.5-6.6); NEUTROPHILS % (AUTO) 85.2 %; PLT - PLATELET COUNT 95 10^3/uL (130-450); RED BLOOD COUNT 3.84 10^6/uL (4.20-5.40); WHITE BLOOD COUNT 12.7 x10^3/uL (4.8-10.8)
[2023-03-02 06:07] LABS: CALCIUM 8.3 mg/dL (8.5-10.3); CREATININE 0.6 mg/dL (0.6-1.3); POTASSIUM 3.2 mmol/L (3.5-4.5)
[2023-03-02] MEDS: HYDROmorphone 1 MG/ML CARPUJECT IVP PRN ×4 (06:58→18:04)
[2023-03-02] MEDS ORDERED: SODIUM CHLORIDE 0.9% 500 ML IV ONE (07:58)
--- NOTE | 2023-03-02 08:19 | PROVIDER PROGRESS NOTE ---
Assessment/Plan - Problem List (1) Sepsis due to gram-negative UTI Assessment/Plan: She nearly met criteria at adm yesterday for sepsis w/ tachycardia at 120 and elevated WBC, but Lactic acid was normal and fever was not >38.3 initially. Today she spiked a fever of 39.1 and has a heart rate of 150 at rest. All labs were reviewed. Her WBC has decreased from 22 down to 12.7 and prolactin has decreased from 12 down to 7 Plan: Cont treating the bacteremia Cont IV fluids given the fever, and I will give a saline bolus Cont Tylenol and Motrin for fever reduction, and Zofran prn N/V Follow Procalcitonin and CBC labs daily (2) ESBL (extended spectrum beta-lactamase) producing bacteria infection Assessment/Plan: Her E. coli blood cx is reported to be a Class A ESBL-producing E. coli that has CTX-M gene. The report states recommend infectious disease consult Plan: Continue with empiric iv Meropenem and await sensitivity results to tailor antibiotics I will obtain infectious disease consult when possible, as was advised by the microbiology lab. (3) E coli bacteremia Assessment/Plan: Her blood cultures turned positive, that were drawn at the first ER visit. The patient was called back into hosp yesterday 03/01, for treatment with IV antibiotics She nearly met criteria for sepsis w/ tachycardia and elevated WBC, but Lactic acid normal and fever was not >38.3 initially Today she spiked a fever of 39.1 and has a heart rate of 150 at rest. All labs were reviewed. Her WBC has decreased from 22 down to 12.7 and prolactin has decreased from 12 down to 7 The repeat bld cx drawn at return to ER yesterday afternoon, are growing a Gram neg today (all labs were reviewed) Plan: Cont empiric IV meropenem 1 g IV every 8h Add a probiotic Await blood culture sensitivity to tailor antibiotics We will repeat her blood cultures when she defervesces to assure she has no gr owth on antibiotic treatment Cont IV fluids given the fever Cont Tylenol plus Motrin for fever reduction Follow BMP, Procalcitonin and CBC labs daily (4) UTI (urinary tract infection) Qualifiers: Indwelling urinary catheter type: unspecified Assessment/Plan: The urine culture that was obtained in the ER is growing Gram Neg bacteria Plan: As above in # 2 Cont pain medications of Tylenol and Dilaudid prn and Pyridium addis for dysuria (5) Pyelonephritis Assessment/Plan: As per findings on CT imaging Plan: Cont pain medications of Tylenol and Dilaudid prn and Pyridium addis for dysuria Cont to treat the underlying infection (6) Tachycardia Assessment/Plan: When the patient had a fever spike of 39.3 C this morning, her heart rate james to 150. I gave her a 500 cc saline bolus. HR then hovered around 100-130 but BP OK at 128/72. Later in the day, with another fever spike to 39.1 C, her heart rate was as high as 161. Plan: Tylenol and Motrin are both ordered to give for fever control I will increase her IV maintenance rate from 100 cc/hr to 150 cc/hr We will check her TSH and free T4 An Echocardiogram has been ordered as urgent. I called the Echo department and requested this be done urgently, and spoke to today's electronic development technician Ree, who said she will not be able to get to this today. However, we have no Echo service for the upcoming 3 days. I will give Cardizem IV push x1 Remain on Telemetry - Current Meds Current Meds: Current Medications Generic Name Dose Route Start Last Admin Trade Name Freq PRN Reason Stop Dose Admin Acetaminophen 650 mg 03/01/23 17:24 03/01/23 21:45 Acetaminophen 325 Mg Tablet PO 650 mg Q4HR PRN Administration Pain 1 to 4, or Fever Hydromorphone HCl 1 mg 03/01/23 18:59 03/02/23 06:58 Hydromorphone 1 Mg/Ml Carpuject IVP 1 mg Q2HR PRN Administration Severe Pain (Level 7-10) Dextrose/Sodium Chloride 1,000 mls @ 100 mls/hr 03/01/23 18:00 03/02/23 05:00 D5ns IV 100 mls/hr .Q10H ADDIS Administration Meropenem 1 gm/ Sodium 100 mls @ 200 mls/hr 03/01/23 18:00 03/02/23 02:11 Chloride IV Infused Q8H ADDIS Infusion Ibuprofen 600 mg 03/01/23 18:59 03/01/23 19:28 Ibuprofen 600 Mg Tablet PO 600 mg Q6HR PRN Administration Pain or Fever > 38C (100.4F) Sodium Chloride 10 ml 03/01/23 17:24 03/01/23 17:56 Sodium Chloride Flush 0.9% 10 Ml Syringe IVP 10 ml PRN PRN Administration NEEDED PER PROVIDER ORDERS Sodium Chloride 10 ml 03/02/23 01:00 03/01/23 23:52 Sodium Chloride Flush 0.9% 10 Ml Syringe IVP Not Given 0100,0900,1700 ADDIS - Lab Result Fish Bone Diagrams: 03/02/23 05:25 03/02/23 05:25 - Additional Planning My Orders: My Active Orders 03/01/23 17:24 Activity Orders [RC] Q2HR IO [RC] IOSHIFT Incentive Spirometry - RT [RC] TID Initiate Bowel Care Protocol [RC] .protocol Initiate Line Care Protocol [RC] QSHIFT Initiate Personal Care Protoco [RC] .protocol Oxygen Therapy [RC] .PRN Telemetry- [RC] Q4HR Vital Signs [RC] Q4HR Acetaminophen [Tylenol] 650 mg PO Q4HR PRN Ondansetron Inj [Zofran Inj] 4 mg IVP Q6HR PRN Sodium Chloride Flush 0.9% [Normal Saline Flush 0.9%] 10 ml IVP PRN PRN Code Status [OTHERS] Routine Condition of Patient [OTHERS] Routine DVT Prophylaxis [OTHERS] Routine 03/01/23 17:25 IV Insert [RC] .ONCE 03/01/23 17:27 Initiate Line Care Protocol [RC] QSHIFT SCDs [RC] QSHIFT 03/01/23 18:00 Dextrose 5%-0.9% NaCl [D5ns] 1,000 ml IV 100 mls/hr Meropenem [Merrem] 1 gm Sodium Chloride 0.9% Minibag [Normal Saline 0.9% Minibag] 100 ml IV Q8H 03/01/23 18:59 HYDROmorphone 1MG CARP [Dilaudid 1Mg Carp] 1 mg IVP Q2HR PRN Ibuprofen [Motrin] 600 mg PO Q6HR PRN 03/02/23 01:00 Sodium Chloride Flush 0.9% [Normal Saline Flush 0.9%] 10 ml IVP 0100,0900,1700 03/02/23 Breakfast Soft Mechanical Diet [DIET] 03/02/23 07:58 Sodium Chloride 0.9% [Normal Saline 0.9%] 500 ml IV ONCE 03/03/23 05:00 BMP - BASIC METABOLIC PANEL [CHEM] DAILYLAB CBC - COMP BLD CT W/AUTO DIFF [HEME] DAILYLAB PROCALCITONIN [CHEM] DAILYLAB Subjective - Subjective Patient Reports: Feeling Better (Patient told who interpreted, since pt allowed that, that she feels better.) Nursing Reports: Other (Fever of 39.2 C this a.m. with HR up to 150 is sinus tachy at the time. Fever did not respond to po Tylenol) Objective Vital Signs: Vital Signs - 24 hr 03/01/23 03/01/23 03/01/23 16:50 18:19 18:30 Temperature 38.2 C H 38.6 C H 38.6 C H Heart Rate 120 H 124 H Heart Rate [ Brachial] Respiratory 17 18 Rate Blood Pressure 126/77 122/78 Blood Pressure [Right Brachial artery] O2 Saturation 100 95 03/01/23 03/01/23 03/02/23 18:35 21:00 00:21 Temperature 39.2 C H 37.7 C 37.0 C Heart Rate Heart Rate [ 122 H 115 H 118 H Brachial] Respiratory 24 23 24 Rate Blood Pressure Blood Pressure 121/72 111/59 L 113/74 [Right Brachial artery] O2 Saturation 96 95 94 03/02/23 03/02/23 06:32 08:11 Temperature 36.9 C 39.1 C H Heart Rate Heart Rate [ 114 H 117 H Brachial] Respiratory 24 22 Rate Blood Pressure Blood Pressure 126/78 123/65 [Right Brachial artery] O2 Saturation 97 92 Oxygen O2 Source Room air I&O (Last 24 Hrs): Intake and Output Totals x24h 02/28/23 03/01/23 03/02/23 23:59 23:59 23:59 Intake Total 596.667 958.334 Balance 596.667 958.334 General: Alert, No acute distress HEENT: EOMI, Mucous membr. moist/pink Neck: Supple, No JVD Neuro: Alert, Non Focal Cardiovascular: Regular rate Respiratory: No respiratory distress Abdomen: No tenderness Extremities: No clubbing, No edema - Results Results: Laboratory Results WBC 12.7 x10^3/uL (4.8-10.8) H 03/02/23 05:25 RBC 3.84 10^6/uL (4.20-5.40) L 03/02/23 05:25 Hgb 11.1 g/dL (12.0-16.0) L 03/02/23 05:25 Hct 33.9 % (37.0-47.0) L 03/02/23 05:25 MCV 88.3 fL (81.0-99.0) 03/02/23 05:25 MCH 28.9 pg (27.0-31.0) 03/02/23 05:25 MCHC 32.7 g/dL (32.0-36.0) 03/02/23 05:25 RDW 14.0 % (12.0-15.0) 03/02/23 05:25 Plt Count 95 10^3/uL (130-450) L 03/02/23 05:25 MPV 9.9 fL (7.9-10.8) 03/02/23 05:25 Neut # (Auto) 10.8 10^3/uL (1.5-6.6) H 03/02/23 05:25 Lymph # (Auto) 1.3 10^3/uL (1.5-3.5) L 03/02/23 05:25 [place] # (Auto) 0.4 10^3/uL (0.0-1.0) 03/02/23 05:25 Eos # (Auto) 0.0 10^3/uL (0.0-0.7) 03/02/23 05:25 Baso # (Auto) 0.1 10^3/uL (0.0-0.1) 03/02/23 05:25 Absolute Nucleated RBC 0.00 x10^3/uL 03/02/23 05:25 Total Counted 100 03/01/23 17:17 Band Neuts % (Manual) 7 % (0-10) 03/01/23 17:17 Abnorm Lymph % (Manual) 0 % 03/01/23 17:17 Nucleated RBC % 0.0 /100WBC 03/02/23 05:25 Neutrophils # (Manual) 17.5 10^3/uL (1.5-6.6) H 03/01/23 17:17 Lymphocytes # (Manual) 3.4 10^3/uL (1.5-3.5) 03/01/23 17:17 Monocytes # (Manual) 0.4 10^3/uL (0.0-1.0) 03/01/23 17:17 Eosinophils # (Manual) 0.0 10^3/uL (0-0.7) 03/01/23 17:17 Basophils # (Manual) 0.0 10^3/uL (0-0.1) 03/01/23 17:17 Differential Comment MANUAL DIFFERENTIAL 03/01/23 17:17 Platelet Estimate DECREASED (<130,000) (NORMAL) 03/01/23 17:17 Platelet Morphology NORMAL APPEARANCE (NORMAL) 03/01/23 17:17 RBC Morph Micro Appear NORMAL APPEARANCE (NORMAL) 03/01/23 17:17 Sodium 135 mmol/L (135-145) 03/02/23 05:25 Potassium 3.2 mmol/L (3.5-4.5) L 03/02/23 05:25 Chloride 109 mmol/L (101-111) 03/02/23 05:25 Carbon Dioxide 18 mmol/L (21-32) L 03/02/23 05:25 Anion Gap 8.0 (6-13) 03/02/23 05:25 BUN 4 mg/dL (6-20) L 03/02/23 05:25 Creatinine 0.6 mg/dL (0.6-1.3) 03/02/23 05:25 Estimated GFR (MDRD) 117 (>89) 03/02/23 05:25 Glucose 178 mg/dL (74-104) H 03/02/23 05:25 Lactic Acid 1.2 mmol/L (0.5-2.2) 03/01/23 23:46 Calcium 8.3 mg/dL (8.5-10.3) L 03/02/23 05:25 Total Bilirubin 0.7 mg/dL (0.2-1.0) 03/01/23 17:17 AST 33 IU/L (10-42) 03/01/23 17:17 ALT 51 IU/L (10-60) 03/01/23 17:17 Alkaline Phosphatase 148 IU/L (42-121) H 03/01/23 17:17 Total Protein 5.9 g/dL (6.4-8.9) L 03/01/23 17:17 Albumin 2.9 g/dL (3.2-5.5) L 03/02/23 05:25 Globulin 2.6 g/dL (2.1-4.2) 03/01/23 17:17 Albumin/Globulin Ratio 1.3 (1.0-2.2) 03/01/23 17:17 Lipase 25 U/L (11-82) 03/01/23 17:17 Procalcitonin Immunoas 9.68 ng/mL (<0.5) H* 03/02/23 05:25 Urine Color YELLOW 03/01/23 17:22 Urine Clarity HAZY (CLEAR) 03/01/23 17:22 Urine pH 7.0 PH (5.0-7.5) 03/01/23 17:22 Ur Specific [place] 1.020 (1.002-1.030) 03/01/23 17:22 Urine Protein 30 mg/dL (NEGATIVE) H 03/01/23 17:22 Urine Glucose (UA) NEGATIVE mg/dL (NEGATIVE) 03/01/23 17:22 Urine Ketones NEGATIVE mg/dL (NEGATIVE) 03/01/23 17:22 Urine Occult Blood MODERATE (NEGATIVE) H 03/01/23 17:22 Urine Nitrite NEGATIVE (NEGATIVE) 03/01/23 17:22 Urine Bilirubin NEGATIVE (NEGATIVE) 03/01/23 17:22 Urine Urobilinogen 0.2 (NORMAL) E.U./dL (NORMAL) 03/01/23 17:22 Ur Leukocyte Esterase NEGATIVE (NEGATIVE) 03/01/23 17:22 Urine RBC TNTC /HPF (0-5) H 03/01/23 17:22 Urine WBC 11-25 /HPF (0-5) H 03/01/23 17:22 Ur Squamous Epith Cells FEW Squamous (<= Few) 03/01/23 17:22 Amorphous Sediment Few /LPF 03/01/23 17:22 Urine Bacteria Few /HPF (None Seen) 03/01/23 17:22 Ur Microscopic Review INDICATED 03/01/23 17:22 Urine Culture Comments INDICATED 03/01/23 17:22 Sepsis Event Note (H) - Evaluation Current Stage of Sepsis: Sepsis - Sepsis Criteria Sepsis Criteria: Recorded Heart Rate greater than 90 bpm, WBC count greater than 12,000 or less than 4000
[2023-03-02] MEDS: ACETAMINOPHEN 325 MG TABLET PO PRN ×2 (08:25→17:57)
[2023-03-02] MEDS: SODIUM CHLORIDE FLUSH 0.9% 10 ML SYRINGE IVP SCH ×2 (09:28→16:09)
[2023-03-02] MEDS: IBUPROFEN 600 MG TABLET PO PRN ×2 (11:05→17:58)
[2023-03-02] MEDS: SACCHAROMYCES BOULARDII 250 MG CAPSULE PO SCH ×2 (11:05→17:57)
[2023-03-02] MEDS: PHENAZOPYRIDINE 100 MG TABLET PO SCH ×2 (14:49→22:21)
[2023-03-02] MEDS ORDERED: diltiaZEM INJ 5 MG/ML VIAL IVP ONE (15:34)
[2023-03-03] MEDS: ACETAMINOPHEN 325 MG TABLET PO PRN ×2 (00:15→05:18)
[2023-03-03] MEDS: SODIUM CHLORIDE FLUSH 0.9% 10 ML SYRINGE IVP SCH ×4 (00:16→23:52)
[2023-03-03] MEDS: IBUPROFEN 600 MG TABLET PO PRN ×2 (00:30→09:04)
[2023-03-03] MEDS: MEROPENEM 1 GM in SODIUM CHLORIDE 0.9% MINIBAG 100 ML IV SCH ×3 (02:23→18:07)
[2023-03-03] MEDS: DEXTROSE 5%-0.9% NACL 1,000 ML IV SCH ×2 (04:26→10:14)
[2023-03-03] MEDS: PHENAZOPYRIDINE 100 MG TABLET PO SCH (05:19)
[2023-03-03 06:00] LABS: BASOPHILS % (AUTO) 0.7 %; HCT - HEMATOCRIT 33.3 % (37.0-47.0); HGB - HEMOGLOBIN 11.4 g/dL (12.0-16.0); LYMPHOCYTES # (AUTO) 0.9 10^3/uL (1.5-3.5); LYMPHOCYTES % (AUTO) 21.3 %; MEAN CORPUSCULAR HGB CONC 34.2 g/dL (32.0-36.0); MEAN CORPUSCULAR VOLUME 84.7 fL (81.0-99.0); MEAN PLATELET VOLUME 10.1 fL (7.9-10.8); MONOCYTES # (AUTO) 0.2 10^3/uL (0.0-1.0); MONOCYTES % (AUTO) 5.7 %; NEUTROPHILS # (AUTO) 2.9 10^3/uL (1.5-6.6); NEUTROPHILS % (AUTO) 70.8 %; PLT - PLATELET COUNT 87 10^3/uL (130-450); RED BLOOD COUNT 3.93 10^6/uL (4.20-5.40); RED CELL DISTRIBUTION WIDTH 14.1 % (12.0-15.0)
[2023-03-03 06:24] LABS: PROCALCITONIN 5.61 ng/mL (<0.5)
[2023-03-03 06:29] LABS: THYROID STIMULATING HORMONE 4.03 uIU/mL (0.34-5.60)
[2023-03-03 06:52] LABS: CALCIUM 8.6 mg/dL (8.5-10.3); CREATININE 0.5 mg/dL (0.6-1.3)
[2023-03-03] MEDS: ONDANSETRON 4 MG/2 ML VIAL IVP PRN ×2 (08:34→17:02)
[2023-03-03] MEDS: SACCHAROMYCES BOULARDII 250 MG CAPSULE PO SCH ×2 (09:05→17:02)
[2023-03-03] MEDS: POTASSIUM CHLOR 10 MEQ/100 ML 10 MEQ/100 ML BAG IV SCH ×2 (11:05→13:16)
[2023-03-03] MEDS ORDERED: POTASSIUM CHLORIDE 10 MEQ CAPSULE PO ONE (12:00)
--- NOTE | 2023-03-03 12:23 | PHARMACY PROGRESS NOTE ---
- Best Possible Medication History Admit Date and Time: 03/01/23 1724 Processed by: Pharmacy Medication History completed: Yes Patient Interview: Completed Secondary Source(s): Pharmacy records, Insurance records As the person ultimately responsible for medication therapy, providers are able to order a medication from an existing home medication list in [facility] via the "Reconcile Routine" prior to Confirmation of that medication by wind farm support specialist. Such practice is discouraged except when the physician, in their clinical judgment, deems that a medical need exists for a medication without regard to previous use.
--- NOTE | 2023-03-03 12:50 | PROVIDER PROGRESS NOTE ---
Assessment/Plan - Problem List (1) Sepsis due to gram-negative UTI Assessment/Plan: She met criteria for sepsis, right after being admitted: she spiked a fever of 39.1 and was tachy with a heart rate of 160. Her WBC was 22 and prolactin was 12. All labs were reviewed. Her Prolactin has improved from 12>> 9 yesterday>> 4 today. Her WBC has improved from 22>> 12 yesterday>> 4 today. Today the first day she has no fever. Plan: Cont treating the bacteremia Cont IV fluids given the fever and N/V. I will de-escalate the diet due to recurrence of nausea Cont Tylenol and Motrin for fever reduction, and Zofran prn N/V Follow Procalcitonin and CBC labs daily I updated the at bedside today (2) ESBL (extended spectrum beta-lactamase) producing bacteria infection Assessment/Plan: Her E. coli blood cx is a Class A ESBL-producing E. coli that has CTX-M gene. Today the sensitivities are back and this E coli is resistant to many antibiotics, however it is sensitive to Ertapenem, Cipro and Levaquin. Plan: Continue with empiric iv Meropenem and will use Levaquin po when we transition to oral antibx in the future Will try to reach ID at a larger facility to review this case (3) E coli bacteremia Assessment/Plan: Her blood cultures turned positive, that were drawn at the first ER visit. The patient was called back into hosp 03/01, for treatment with IV antibiotics The repeat bld cx drawn at return to ER, are also growing a Gram neg (all labs were reviewed) Plan: Cont empiric IV meropenem Cont probiotic We will repeat her blood cultures tomorrow, to assure she has no growth on antibiotic treatment Cont IV fluids given the recent fever and N/V Cont Tylenol plus Motrin for fever reduction Follow BMP, Procalcitonin and CBC labs daily (4) E. coli UTI (urinary tract infection) Qualifiers: Indwelling urinary catheter type: unspecified Assessment/Plan: The urine culture that was obtained in the ER is growing the same ESBL-producing E coli, as in the blood culture Plan: As above in # 2 & 3 Cont pain medications of Tylenol and Dilaudid prn and Pyridium prn for dysuria (5) Pyelonephritis Assessment/Plan: As per findings on CT imaging Plan: Cont pain medications of Tylenol and Dilaudid prn and Pyridium addis for dysuria Cont to treat the underlying infection I will de-escalate the diet due to recurrence of nausea (6) Hypokalemia Assessment/Plan: K is 3.0 today. Likely from N/V and from hemodilution here Plan: Replace K w/ riders and po Follow BMP daily (7) Tachycardia Assessment/Plan: IMPROVING When the patient had several fever spikes of 39.3 C, her heart rate james to 150- 160. I gave her saline boluses and kept maintenance fluid rate high at 150 cc/hr. She got 1 dose of iv push Diltiazem when HR reached 170 yesterday. Her TSH and free T4 came back WNL An Echo was ordered as urgent, but the bioinformatics research technician said she would not get to it, and now we have no Echo service for the upcoming 3 days. VS were reviewed. Her HR today is 97. Plan: Tylenol and Motrin are both ordered to give for fever control I will decrease IV maintenance rate from 150 cc/hr to 83.33 cc/hr Remain on Telemetry - Current Meds Current Meds: Current Medications Generic Name Dose Route Start Last Admin Trade Name Freq PRN Reason Stop Dose Admin Acetaminophen 650 mg 03/01/23 17:24 03/03/23 05:18 Acetaminophen 325 Mg Tablet PO 650 mg Q4HR PRN Administration Pain 1 to 4, or Fever Hydromorphone HCl 1 mg 03/01/23 18:59 03/02/23 18:04 Hydromorphone 1 Mg/Ml Carpuject IVP 1 mg Q2HR PRN Administration Severe Pain (Level 7-10) Meropenem 1 gm/ Sodium 100 mls @ 200 mls/hr 03/01/23 18:00 03/03/23 10:45 Chloride IV Infused Q8H ADDIS Infusion Dextrose/Sodium Chloride 1,000 mls @ 83.33 mls/hr 03/03/23 09:07 03/03/23 11:09 D5ns IV 0 mls/hr .Q12H1M ADDIS Infusion Ibuprofen 600 mg 03/01/23 18:59 03/03/23 09:04 Ibuprofen 600 Mg Tablet PO 600 mg Q6HR PRN Administration Pain or Fever > 38C (100.4F) Ondansetron HCl 4 mg 03/01/23 17:24 03/03/23 08:34 Ondansetron 4 Mg/2 Ml Vial IVP 4 mg Q6HR PRN Administration Nausea / Vomiting Phenazopyridine HCl 100 mg 03/02/23 14:00 03/03/23 05:19 Phenazopyridine 100 Mg Tablet PO 03/04/23 23:55 100 mg TID ADDIS Administration Saccharomyces Boulardii 250 mg 03/02/23 10:03 03/03/23 09:05 Saccharomyces Boulardii 250 Mg Capsule PO 250 mg BIDWM ADDIS Administration Sodium Chloride 10 ml 03/01/23 17:24 03/01/23 17:56 Sodium Chloride Flush 0.9% 10 Ml Syringe IVP 10 ml PRN PRN Administration NEEDED PER PROVIDER ORDERS Sodium Chloride 10 ml 03/02/23 01:00 03/03/23 08:34 Sodium Chloride Flush 0.9% 10 Ml Syringe IVP 10 ml 0100,0900,1700 ADDIS Administration - Lab Result Fish Bone Diagrams: 03/03/23 05:49 03/03/23 05:49 - Additional Planning My Orders: My Active Orders 03/02/23 13:44 Echo Transthoracic Complete [ECHO] Routine 03/02/23 14:00 Phenazopyridine [Pyridium] 100 mg PO TID 03/03/23 09:07 Dextrose 5%-0.9% NaCl [D5ns] 1,000 ml IV 83.33 mls/hr 03/03/23 Lunch DIET [Dysphagia - Minced and Moist] [DIET] 03/04/23 05:00 BMP - BASIC METABOLIC PANEL [CHEM] DAILYLAB CBC - COMP BLD CT W/AUTO DIFF [HEME] DAILYLAB MAGNESIUM [CHEM] DAILYLAB PHOSPHORUS [CHEM] DAILYLAB PROLACTIN [CHEM] DAILYLAB 03/05/23 05:00 BMP - BASIC METABOLIC PANEL [CHEM] DAILYLAB CBC - COMP BLD CT W/AUTO DIFF [HEME] DAILYLAB PROLACTIN [CHEM] DAILYLAB 03/06/23 05:00 BMP - BASIC METABOLIC PANEL [CHEM] DAILYLAB CBC - COMP BLD CT W/AUTO DIFF [HEME] DAILYLAB Subjective - Subjective Patient Reports: Nausea ( interpreted which the pt allowed. She had N/V of breakfast today, so only took bites), Other (No more fever sinceyesterday. Still has pain in R flank, and along R groin, rated 4/10. Still has burning w/ urinating) Objective Vital Signs: Vital Signs - 24 hr 03/02/23 03/02/23 03/02/23 13:00 15:45 17:44 Temperature 39.1 C H 38.9 C H 39.3 C H Heart Rate [ 131 H 134 H 137 H Brachial] Respiratory 20 24 36 H Rate Blood Pressure 128/72 126/72 134/78 H [Right Brachial artery] O2 Saturation 91 L 92 90 L 03/02/23 03/02/23 03/03/23 18:27 20:31 00:01 Temperature 39.2 C H 37.8 C 36.7 C Heart Rate [ 129 H 108 H Brachial] Respiratory 24 20 Rate Blood Pressure 125/73 113/62 [Right Brachial artery] O2 Saturation 91 L 92 03/03/23 03/03/23 03/03/23 05:14 08:18 12:13 Temperature 36.7 C 36.8 C 36.8 C Heart Rate [ 101 H 97 93 Brachial] Respiratory 20 20 20 Rate Blood Pressure 122/83 H 123/75 123/88 H [Right Brachial artery] O2 Saturation 95 95 96 Oxygen O2 Source Room air I&O (Last 24 Hrs): Intake and Output Totals x24h 03/01/23 03/02/23 03/03/23 23:59 23:59 23:59 Intake Total 015.499 5365.334 2273.386 Balance 904.243 2358.334 2273.386 General: Alert, Oriented x3, No acute distress HEENT: Mucous membr. moist/pink Neck: Supple Neuro: Alert, Non Focal Cardiovascular: Regular rate Respiratory: No respiratory distress Abdomen: Normal bowel sounds, Soft, No tenderness Extremities: No clubbing, No edema, No tenderness/swelling - Results Results: Laboratory Results WBC 4.0 x10^3/uL (4.8-10.8) L 03/03/23 05:49 RBC 3.93 10^6/uL (4.20-5.40) L 03/03/23 05:49 Hgb 11.4 g/dL (12.0-16.0) L 03/03/23 05:49 Hct 33.3 % (37.0-47.0) L 03/03/23 05:49 MCV 84.7 fL (81.0-99.0) 03/03/23 05:49 MCH 29.0 pg (27.0-31.0) 03/03/23 05:49 MCHC 34.2 g/dL (32.0-36.0) 03/03/23 05:49 RDW 14.1 % (12.0-15.0) 03/03/23 05:49 Plt Count 87 10^3/uL (130-450) L 03/03/23 05:49 MPV 10.1 fL (7.9-10.8) 03/03/23 05:49 Neut # (Auto) 2.9 10^3/uL (1.5-6.6) 03/03/23 05:49 Lymph # (Auto) 0.9 10^3/uL (1.5-3.5) L 03/03/23 05:49 [place] # (Auto) 0.2 10^3/uL (0.0-1.0) 03/03/23 05:49 Eos # (Auto) 0.0 10^3/uL (0.0-0.7) 03/03/23 05:49 Baso # (Auto) 0.0 10^3/uL (0.0-0.1) 03/03/23 05:49 Absolute Nucleated RBC 0.00 x10^3/uL 03/03/23 05:49 Total Counted 100 03/01/23 17:17 Band Neuts % (Manual) 7 % (0-10) 03/01/23 17:17 Abnorm Lymph % (Manual) 0 % 03/01/23 17:17 Nucleated RBC % 0.0 /100WBC 03/03/23 05:49 Neutrophils # (Manual) 17.5 10^3/uL (1.5-6.6) H 03/01/23 17:17 Lymphocytes # (Manual) 3.4 10^3/uL (1.5-3.5) 03/01/23 17:17 Monocytes # (Manual) 0.4 10^3/uL (0.0-1.0) 03/01/23 17:17 Eosinophils # (Manual) 0.0 10^3/uL (0-0.7) 03/01/23 17:17 Basophils # (Manual) 0.0 10^3/uL (0-0.1) 03/01/23 17:17 Differential Comment MANUAL DIFFERENTIAL 03/01/23 17:17 Platelet Estimate DECREASED (<130,000) (NORMAL) 03/01/23 17:17 Platelet Morphology NORMAL APPEARANCE (NORMAL) 03/01/23 17:17 RBC Morph Micro Appear NORMAL APPEARANCE (NORMAL) 03/01/23 17:17 Sodium 136 mmol/L (135-145) 03/03/23 05:49 Potassium 3.0 mmol/L (3.5-4.5) L 03/03/23 05:49 Chloride 110 mmol/L (101-111) 03/03/23 05:49 Carbon Dioxide 19 mmol/L (21-32) L 03/03/23 05:49 Anion Gap 7.0 (6-13) 03/03/23 05:49 BUN 4 mg/dL (6-20) L 03/03/23 05:49 Creatinine 0.5 mg/dL (0.6-1.3) L 03/03/23 05:49 Estimated GFR (MDRD) 144 (>89) 03/03/23 05:49 Glucose 198 mg/dL (74-104) H 03/03/23 05:49 Lactic Acid 1.2 mmol/L (0.5-2.2) 03/01/23 23:46 Calcium 8.6 mg/dL (8.5-10.3) 03/03/23 05:49 Total Bilirubin 0.7 mg/dL (0.2-1.0) 03/01/23 17:17 AST 33 IU/L (10-42) 03/01/23 17:17 ALT 51 IU/L (10-60) 03/01/23 17:17 Alkaline Phosphatase 148 IU/L (42-121) H 03/01/23 17:17 Total Protein 5.9 g/dL (6.4-8.9) L 03/01/23 17:17 Albumin 2.9 g/dL (3.2-5.5) L 03/02/23 05:25 Globulin 2.6 g/dL (2.1-4.2) 03/01/23 17:17 Albumin/Globulin Ratio 1.3 (1.0-2.2) 03/01/23 17:17 Lipase 25 U/L (11-82) 03/01/23 17:17 Procalcitonin Immunoas 5.61 ng/mL (<0.5) H* 03/03/23 05:49 TSH 4.03 uIU/mL (0.34-5.60) 03/03/23 05:49 Free T4 Direct 1.17 ng/dL (0.58-1.64) 03/03/23 05:49 Urine Color YELLOW 03/01/23 17:22 Urine Clarity HAZY (CLEAR) 03/01/23 17:22 Urine pH 7.0 PH (5.0-7.5) 03/01/23 17:22 Ur Specific [place] 1.020 (1.002-1.030) 03/01/23 17:22 Urine Protein 30 mg/dL (NEGATIVE) H 03/01/23 17:22 Urine Glucose (UA) NEGATIVE mg/dL (NEGATIVE) 03/01/23 17:22 Urine Ketones NEGATIVE mg/dL (NEGATIVE) 03/01/23 17:22 Urine Occult Blood MODERATE (NEGATIVE) H 03/01/23 17:22 Urine Nitrite NEGATIVE (NEGATIVE) 03/01/23 17:22 Urine Bilirubin NEGATIVE (NEGATIVE) 03/01/23 17:22 Urine Urobilinogen 0.2 (NORMAL) E.U./dL (NORMAL) 03/01/23 17:22 Ur Leukocyte Esterase NEGATIVE (NEGATIVE) 03/01/23 17:22 Urine RBC TNTC /HPF (0-5) H 03/01/23 17:22 Urine WBC 11-25 /HPF (0-5) H 03/01/23 17:22 Ur Squamous Epith Cells FEW Squamous (<= Few) 03/01/23 17:22 Amorphous Sediment Few /LPF 03/01/23 17:22 Urine Bacteria Few /HPF (None Seen) 03/01/23 17:22 Ur Microscopic Review INDICATED 03/01/23 17:22 Urine Culture Comments INDICATED 03/01/23 17:22 Sepsis Event Note (H) - Evaluation Current Stage of Sepsis: Sepsis - Sepsis Criteria Sepsis Criteria: Recorded Heart Rate greater than 90 bpm, WBC count greater than 12,000 or less than 4000
[2023-03-03] MEDS: PHENAZOPYRIDINE 100 MG TABLET PO PRN ×2 (13:23→23:53)
[2023-03-03] MEDS: HYDROmorphone 1 MG/ML CARPUJECT IVP PRN ×2 (18:09→23:52)
[2023-03-04] MEDS: MEROPENEM 1 GM in SODIUM CHLORIDE 0.9% MINIBAG 100 ML IV SCH ×3 (02:38→18:24)
[2023-03-04] MEDS: DEXTROSE 5%-0.9% NACL 1,000 ML IV SCH ×2 (02:39→16:24)
[2023-03-04] MEDS: HYDROmorphone 1 MG/ML CARPUJECT IVP PRN ×3 (05:25→18:26)
[2023-03-04 05:59] LABS: BASOPHILS % (AUTO) 0.7 %; EOSINOPHILS % (AUTO) 0.7 %; HCT - HEMATOCRIT 32.8 % (37.0-47.0); HGB - HEMOGLOBIN 10.8 g/dL (12.0-16.0); LYMPHOCYTES # (AUTO) 2.1 10^3/uL (1.5-3.5); LYMPHOCYTES % (AUTO) 37.5 %; MEAN CORPUSCULAR HEMOGLOBIN 28.1 pg (27.0-31.0); MEAN CORPUSCULAR HGB CONC 32.9 g/dL (32.0-36.0); MEAN CORPUSCULAR VOLUME 85.4 fL (81.0-99.0); MEAN PLATELET VOLUME 10.2 fL (7.9-10.8); MONOCYTES # (AUTO) 0.4 10^3/uL (0.0-1.0); MONOCYTES % (AUTO) 7.1 %; NEUTROPHILS # (AUTO) 2.9 10^3/uL (1.5-6.6); NEUTROPHILS % (AUTO) 52.2 %; PLT - PLATELET COUNT 102 10^3/uL (130-450); RED BLOOD COUNT 3.84 10^6/uL (4.20-5.40); RED CELL DISTRIBUTION WIDTH 14.2 % (12.0-15.0); WHITE BLOOD COUNT 5.6 x10^3/uL (4.8-10.8)
[2023-03-04 06:19] LABS: CALCIUM 8.2 mg/dL (8.5-10.3); CREATININE 0.5 mg/dL (0.6-1.3); MAGNESIUM 1.5 mg/dL (1.7-2.3); PHOSPHORUS 2.9 mg/dL (2.5-5.0); POTASSIUM 3.2 mmol/L (3.5-4.5)
[2023-03-04 07:05] LABS: PROLACTIN 53.93 ng/mL
[2023-03-04] MEDS: SACCHAROMYCES BOULARDII 250 MG CAPSULE PO SCH ×2 (08:12→18:24)
[2023-03-04] MEDS: SODIUM CHLORIDE FLUSH 0.9% 10 ML SYRINGE IVP SCH ×2 (08:12→18:24)
[2023-03-04] MEDS: IBUPROFEN 600 MG TABLET PO PRN (08:16)
[2023-03-04] MEDS ORDERED: POTASSIUM PHOSPHATE 21 MMOL in SODIUM CHLORIDE 0.9% 250 ML IV ONE (08:20)
--- NOTE | 2023-03-04 08:23 | PROVIDER PROGRESS NOTE ---
Assessment/Plan - Problem List (1) E coli bacteremia Assessment/Plan: Her blood cultures turned positive, that were drawn at the first ER visit. The patient was called back into hosp 03/01, for treatment with IV antibiotics The repeat bld cx drawn at return to ER, are also growing a Gram neg (all labs were reviewed) Plan: Cont empiric IV meropenem Cont probiotic We will repeat her blood cultures today, now that she is afebrile, to assure she has no growth on antibiotic treatment Cont IV fluids given the recent fever and N/V, cont same diet Cont Tylenol plus Motrin for fever reduction Follow CBC lab daily (2) ESBL (extended spectrum beta-lactamase) producing bacteria infection Assessment/Plan: Her E. coli blood cx is a Class A ESBL-producing E. coli that has CTX-M gene. The sensitivities are back and this E coli is resistant to many antibiotics, however it is sensitive to Ertapenem, Cipro and Levaquin. Plan: Continue with empiric iv Meropenem and will use Levaquin po when we transition to oral antibx in the future Will try to reach ID at a larger facility to review this case (3) E. coli UTI (urinary tract infection) Qualifiers: Indwelling urinary catheter type: unspecified Assessment/Plan: The urine culture that was obtained in the ER is growing the same ESBL-producing E coli, as in the blood culture Plan: As above in # 2 & 3 Cont pain medications of Tylenol and Dilaudid prn and Pyridium for dysuria (4) Pyelonephritis Assessment/Plan: As per findings on CT imaging Plan: Cont pain medications of Tylenol and Dilaudid prn and Pyridium addis for dysuria Cont to treat the underlying infection I de-escalated the diet due to recurrence of nausea and she wants this continued (5) Hypokalemia Assessment/Plan: K is 3.2 today. Likely from N/V and from hemodilution here Plan: Replace K w/ riders and po Follow BMP daily (6) Hypomagnesemia Assessment/Plan: Mg is low today at 1.5. Likely from poor oral intake related to nausea Plan: Replace Mg with IV rider Follow Mg daily (7) Tachycardia Assessment/Plan: RESOLVED When the patient had several fever spikes of 39.3 C, her heart rate james to 150- 160. I gave her saline boluses and kept maintenance fluid rate high at 150 cc/hr. She got 1 dose of iv push Diltiazem when HR reached 170 . Her TSH and free T4 came back WNL An Echo was ordered as urgent (but the autocad technician said she would not get to it on Sun, and today is Sun so we have no Echo service until ). VS were reviewed. Plan: Tylenol and Motrin are both ordered to give for fever control Cont decreased IV maintenance fluids at rate 60 cc/hr Remain on Telemetry (8) Sepsis due to gram-negative UTI Assessment/Plan: SEPSIS HAS RESOLVED She met criteria for sepsis, right after being admitted: she spiked a fever of 39.1 and was tachy with a heart rate of 160. Her WBC was 22 and procalcitonin was 12. Plan: Cont treating the bacteremia Cont IV fluids given the fever and N/V. I de-escalated the diet due to recurrence of nausea, and she wants this continued Cont Tylenol and Motrin for fever reduction, and Zofran prn N/V - Current Meds Current Meds: Current Medications Generic Name Dose Route Start Last Admin Trade Name Freq PRN Reason Stop Dose Admin Acetaminophen 650 mg 03/01/23 17:24 03/03/23 05:18 Acetaminophen 325 Mg Tablet PO 650 mg Q4HR PRN Administration Pain 1 to 4, or Fever Hydromorphone HCl 1 mg 03/01/23 18:59 03/04/23 05:25 Hydromorphone 1 Mg/Ml Carpuject IVP 1 mg Q2HR PRN Administration Severe Pain (Level 7-10) Meropenem 1 gm/ Sodium 100 mls @ 200 mls/hr 03/01/23 18:00 03/04/23 03:08 Chloride IV Infused Q8H ADDIS Infusion Dextrose/Sodium Chloride 1,000 mls @ 83.33 mls/hr 03/03/23 09:07 03/04/23 02:39 D5ns IV 83.3 mls/hr .Q12H1M ADDIS Administration Ibuprofen 600 mg 03/01/23 18:59 03/04/23 08:16 Ibuprofen 600 Mg Tablet PO 600 mg Q6HR PRN Administration Pain or Fever > 38C (100.4F) Ondansetron HCl 4 mg 03/01/23 17:24 03/03/23 17:02 Ondansetron 4 Mg/2 Ml Vial IVP 4 mg Q6HR PRN Administration Nausea / Vomiting Phenazopyridine HCl 100 mg 03/03/23 12:55 03/03/23 23:53 Phenazopyridine 100 Mg Tablet PO 03/04/23 23:55 100 mg TID PRN Administration Burning with urination Saccharomyces Boulardii 250 mg 03/02/23 10:03 03/04/23 08:12 Saccharomyces Boulardii 250 Mg Capsule PO 250 mg BIDWM ADDIS Administration Sodium Chloride 10 ml 03/01/23 17:24 03/01/23 17:56 Sodium Chloride Flush 0.9% 10 Ml Syringe IVP 10 ml PRN PRN Administration NEEDED PER PROVIDER ORDERS Sodium Chloride 10 ml 03/02/23 01:00 03/04/23 08:12 Sodium Chloride Flush 0.9% 10 Ml Syringe IVP 10 ml 0100,0900,1700 ADDIS Administration - Lab Result Fish Bone Diagrams: 03/04/23 05:47 03/04/23 05:47 - Additional Planning My Orders: My Active Orders 03/03/23 09:07 Dextrose 5%-0.9% NaCl [D5ns] 1,000 ml IV 83.33 mls/hr 03/03/23 Lunch DIET [Dysphagia - Minced and Moist] [DIET] 03/03/23 12:55 Phenazopyridine [Pyridium] 100 mg PO TID PRN 03/04/23 08:20 Potassium Phosphate/NS 21 mmol/250 mL x 1 Potassium Phosphate 21 mmol Sodium Chloride 0.9% [Normal Saline 0.9%] 250 ml IV ONCE 03/05/23 05:00 BMP - BASIC METABOLIC PANEL [CHEM] DAILYLAB CBC - COMP BLD CT W/AUTO DIFF [HEME] DAILYLAB PROLACTIN [CHEM] DAILYLAB 03/06/23 05:00 BMP - BASIC METABOLIC PANEL [CHEM] DAILYLAB CBC - COMP BLD CT W/AUTO DIFF [HEME] DAILYLAB Subjective - Subjective Patient Reports: Feeling Better (She has no N/V on the minced and moist diet without milk or milk producs. She wishes we cont this diet. R flank pain improving. Her interpreted for me, and pt approved this.) Objective Vital Signs: Vital Signs - 24 hr 03/03/23 03/03/23 03/03/23 12:13 15:34 16:00 Temperature 36.8 C 37.0 C Heart Rate [ 93 91 Brachial] Respiratory 20 32 H 28 H Rate Blood Pressure 123/88 H 123/85 H [Right Brachial artery] O2 Saturation 96 95 03/03/23 03/03/23 03/04/23 21:00 23:37 05:20 Temperature 37.4 C 38.0 C H 37.9 C Heart Rate [ 96 111 H 111 H Brachial] Respiratory 28 H 20 20 Rate Blood Pressure 121/82 H 120/71 128/80 [Right Brachial artery] O2 Saturation 93 94 93 Oxygen O2 Source Room air I&O (Last 24 Hrs): Intake and Output Totals x24h 03/02/23 03/03/23 03/04/23 23:59 23:59 23:59 Intake Total 4366.334 3563.386 1023.614 Balance 4366.334 3563.386 1023.614 General: Alert, Oriented x3 HEENT: EOMI, Mucous membr. moist/pink Neck: Supple Neuro: Alert, Non Focal Cardiovascular: Regular rate Respiratory: No respiratory distress Abdomen: Soft, No tenderness Extremities: No clubbing, No edema, No tenderness/swelling - Results Results: Laboratory Results WBC 5.6 x10^3/uL (4.8-10.8) 03/04/23 05:47 RBC 3.84 10^6/uL (4.20-5.40) L 03/04/23 05:47 Hgb 10.8 g/dL (12.0-16.0) L 03/04/23 05:47 Hct 32.8 % (37.0-47.0) L 03/04/23 05:47 MCV 85.4 fL (81.0-99.0) 03/04/23 05:47 MCH 28.1 pg (27.0-31.0) 03/04/23 05:47 MCHC 32.9 g/dL (32.0-36.0) 03/04/23 05:47 RDW 14.2 % (12.0-15.0) 03/04/23 05:47 Plt Count 102 10^3/uL (130-450) L 03/04/23 05:47 MPV 10.2 fL (7.9-10.8) 03/04/23 05:47 Neut # (Auto) 2.9 10^3/uL (1.5-6.6) 03/04/23 05:47 Lymph # (Auto) 2.1 10^3/uL (1.5-3.5) 03/04/23 05:47 [place] # (Auto) 0.4 10^3/uL (0.0-1.0) 03/04/23 05:47 Eos # (Auto) 0.0 10^3/uL (0.0-0.7) 03/04/23 05:47 Baso # (Auto) 0.0 10^3/uL (0.0-0.1) 03/04/23 05:47 Absolute Nucleated RBC 0.00 x10^3/uL 03/04/23 05:47 Total Counted 100 03/01/23 17:17 Band Neuts % (Manual) 7 % (0-10) 03/01/23 17:17 Abnorm Lymph % (Manual) 0 % 03/01/23 17:17 Nucleated RBC % 0.0 /100WBC 03/04/23 05:47 Neutrophils # (Manual) 17.5 10^3/uL (1.5-6.6) H 03/01/23 17:17 Lymphocytes # (Manual) 3.4 10^3/uL (1.5-3.5) 03/01/23 17:17 Monocytes # (Manual) 0.4 10^3/uL (0.0-1.0) 03/01/23 17:17 Eosinophils # (Manual) 0.0 10^3/uL (0-0.7) 03/01/23 17:17 Basophils # (Manual) 0.0 10^3/uL (0-0.1) 03/01/23 17:17 Differential Comment MANUAL DIFFERENTIAL 03/01/23 17:17 Platelet Estimate DECREASED (<130,000) (NORMAL) 03/01/23 17:17 Platelet Morphology NORMAL APPEARANCE (NORMAL) 03/01/23 17:17 RBC Morph Micro Appear NORMAL APPEARANCE (NORMAL) 03/01/23 17:17 Sodium 133 mmol/L (135-145) L 03/04/23 05:47 Potassium 3.2 mmol/L (3.5-4.5) L 03/04/23 05:47 Chloride 106 mmol/L (101-111) 03/04/23 05:47 Carbon Dioxide 19 mmol/L (21-32) L 03/04/23 05:47 Anion Gap 8.0 (6-13) 03/04/23 05:47 BUN 4 mg/dL (6-20) L 03/04/23 05:47 Creatinine 0.5 mg/dL (0.6-1.3) L 03/04/23 05:47 Estimated GFR (MDRD) 144 (>89) 03/04/23 05:47 Glucose 118 mg/dL (74-104) H 03/04/23 05:47 Lactic Acid 1.2 mmol/L (0.5-2.2) 03/01/23 23:46 Calcium 8.2 mg/dL (8.5-10.3) L 03/04/23 05:47 Phosphorus 2.9 mg/dL (2.5-5.0) 03/04/23 05:47 Magnesium 1.5 mg/dL (1.7-2.3) L 03/04/23 05:47 Total Bilirubin 0.7 mg/dL (0.2-1.0) 03/01/23 17:17 AST 33 IU/L (10-42) 03/01/23 17:17 ALT 51 IU/L (10-60) 03/01/23 17:17 Alkaline Phosphatase 148 IU/L (42-121) H 03/01/23 17:17 Total Protein 5.9 g/dL (6.4-8.9) L 03/01/23 17:17 Albumin 2.9 g/dL (3.2-5.5) L 03/02/23 05:25 Globulin 2.6 g/dL (2.1-4.2) 03/01/23 17:17 Albumin/Globulin Ratio 1.3 (1.0-2.2) 03/01/23 17:17 Lipase 25 U/L (11-82) 03/01/23 17:17 Procalcitonin Immunoas 5.61 ng/mL (<0.5) H* 03/03/23 05:49 TSH 4.03 uIU/mL (0.34-5.60) 03/03/23 05:49 Free T4 Direct 1.17 ng/dL (0.58-1.64) 03/03/23 05:49 Prolactin 53.93 ng/mL 03/04/23 05:47 Urine Color YELLOW 03/01/23 17:22 Urine Clarity HAZY (CLEAR) 03/01/23 17:22 Urine pH 7.0 PH (5.0-7.5) 03/01/23 17:22 Ur Specific [place] 1.020 (1.002-1.030) 03/01/23 17:22 Urine Protein 30 mg/dL (NEGATIVE) H 03/01/23 17:22 Urine Glucose (UA) NEGATIVE mg/dL (NEGATIVE) 03/01/23 17:22 Urine Ketones NEGATIVE mg/dL (NEGATIVE) 03/01/23 17:22 Urine Occult Blood MODERATE (NEGATIVE) H 03/01/23 17:22 Urine Nitrite NEGATIVE (NEGATIVE) 03/01/23 17:22 Urine Bilirubin NEGATIVE (NEGATIVE) 03/01/23 17:22 Urine Urobilinogen 0.2 (NORMAL) E.U./dL (NORMAL) 03/01/23 17:22 Ur Leukocyte Esterase NEGATIVE (NEGATIVE) 03/01/23 17:22 Urine RBC TNTC /HPF (0-5) H 03/01/23 17:22 Urine WBC 11-25 /HPF (0-5) H 03/01/23 17:22 Ur Squamous Epith Cells FEW Squamous (<= Few) 03/01/23 17:22 Amorphous Sediment Few /LPF 03/01/23 17:22 Urine Bacteria Few /HPF (None Seen) 03/01/23 17:22 Ur Microscopic Review INDICATED 03/01/23 17:22 Urine Culture Comments INDICATED 03/01/23 17:22 Sepsis Event Note (H) - Evaluation Current Stage of Sepsis: Sepsis - Sepsis Criteria Sepsis Criteria: Recorded Heart Rate greater than 90 bpm, WBC count greater than 12,000 or less than 4000
[2023-03-04] MEDS ORDERED: MAGNESIUM SULFATE 2 GRAM 2 GM/50 ML BAG IV ONE (08:27)
[2023-03-04] MEDS ORDERED: SODIUM CHLORIDE 0.9% MINIBAG 100 ML IV ONE (09:52)
[2023-03-04] MEDS: ACETAMINOPHEN 325 MG TABLET PO PRN ×2 (10:10→23:56)
[2023-03-05] MEDS: HYDROmorphone 1 MG/ML CARPUJECT IVP PRN ×2 (00:04→06:14)
[2023-03-05] MEDS: SODIUM CHLORIDE FLUSH 0.9% 10 ML SYRINGE IVP SCH ×3 (00:05→17:05)
[2023-03-05] MEDS ORDERED: SODIUM CHLORIDE 0.9% MINIBAG 100 ML IV ONE ×5 (01:55→18:26)
[2023-03-05] MEDS: MEROPENEM 1 GM in SODIUM CHLORIDE 0.9% MINIBAG 100 ML IV SCH ×3 (02:11→18:40)
[2023-03-05] MEDS: SODIUM CHLORIDE FLUSH 0.9% 10 ML SYRINGE IVP PRN ×3 (02:11→10:43)
[2023-03-05] MEDS: DEXTROSE 5%-0.9% NACL 1,000 ML IV SCH (02:45)
[2023-03-05 05:48] LABS: BASOPHILS % (AUTO) 0.6 %; EOSINOPHILS # (AUTO) 0.1 10^3/uL (0.0-0.7); EOSINOPHILS % (AUTO) 0.8 %; HGB - HEMOGLOBIN 10.9 g/dL (12.0-16.0); LYMPHOCYTES % (AUTO) 46.6 %; MEAN CORPUSCULAR HEMOGLOBIN 28.3 pg (27.0-31.0); MEAN CORPUSCULAR VOLUME 85.7 fL (81.0-99.0); MEAN PLATELET VOLUME 10.3 fL (7.9-10.8); MONOCYTES # (AUTO) 0.5 10^3/uL (0.0-1.0); MONOCYTES % (AUTO) 8.5 %; NEUTROPHILS # (AUTO) 2.7 10^3/uL (1.5-6.6); NEUTROPHILS % (AUTO) 41.5 %; PLT - PLATELET COUNT 169 10^3/uL (130-450); RED BLOOD COUNT 3.85 10^6/uL (4.20-5.40); RED CELL DISTRIBUTION WIDTH 14.6 % (12.0-15.0); WHITE BLOOD COUNT 6.4 x10^3/uL (4.8-10.8)
[2023-03-05 06:05] LABS: CALCIUM 8.3 mg/dL (8.5-10.3); CREATININE 0.5 mg/dL (0.6-1.3); POTASSIUM 3.4 mmol/L (3.5-4.5)
[2023-03-05] MEDS: IBUPROFEN 600 MG TABLET PO PRN ×3 (06:20→23:59)
[2023-03-05] MEDS ORDERED: DEXTROSE 5%-0.9% NACL 1,000 ML IV SCH (08:33)
[2023-03-05] MEDS ORDERED: HYDROmorphone 1 MG/ML CARPUJECT IVP PRN (08:34)
[2023-03-05] MEDS: SACCHAROMYCES BOULARDII 250 MG CAPSULE PO SCH ×2 (08:48→17:04)
[2023-03-05] MEDS: ACETAMINOPHEN 325 MG TABLET PO PRN (08:48)
[2023-03-05 08:53] LABS: ALBUMIN 3.1 g/dL (3.2-5.5); MAGNESIUM 1.9 mg/dL (1.7-2.3); PHOSPHORUS 3.1 mg/dL (2.5-5.0)
[2023-03-05] MEDS: oxyCODONE 5 MG TABLET PO PRN ×2 (11:05→19:40)
--- NOTE | 2023-03-05 17:04 | PROVIDER PROGRESS NOTE ---
Assessment/Plan - Problem List (1) E coli bacteremia Assessment/Plan: Her blood cultures turned positive, that were drawn at the first ER visit. The patient was called back into hosp 03/01, for treatment with IV antibiotics The repeat bld cx drawn at return to ER, also grew Ecoli (all labs were reviewed). After she defervesced, a second set of bld cx were drawn yest 03/04, which are neg to date Plan: Cont empiric IV meropenem Cont probiotic Await results of the repeat blood cultures I will taper down then stop her IV fluids Cont Tylenol plus Motrin for fever reduction and give for mild pain Follow WBC lab daily I updated the pt and at bedside about the plan (2) ESBL (extended spectrum beta-lactamase) producing bacteria infection Assessment/Plan: Her E. coli blood cx is a Class A ESBL-producing E. coli that has CTX-M gene. The sensitivities are back and this E coli is resistant to many antibiotics, however it is sensitive to Ertapenem, Cipro and Levaquin. Plan: Continue with empiric iv Meropenem and will probably transition to Levaquin po, when we switch her to oral antibx Course of antibx will be 10-14 days total The microbiology lab report advised an ID consult. Will try to reach ID at a larger facility to review this case (3) E. coli UTI (urinary tract infection) Qualifiers: Indwelling urinary catheter type: unspecified Assessment/Plan: The urine culture that was obtained in the ER is growing the same ESBL-producing E coli, as in the blood culture Plan: As above in # 1 & 2 Cont pain medications of Tylenol and Dilaudid prn and Pyridium for dysuria (4) Pyelonephritis Assessment/Plan: As per findings on CT imaging Plan: Cont pain medications of Tylenol and/or Motrin prn mild pain, Oxycodone for moderate pain, and iv Dilaudid prn severe pain and Pyridium was ordered for her dysuria Cont antibx to treat the underlying infection I de-escalated the diet due to recurrence of nausea and she wants this continued (5) Hypokalemia Assessment/Plan: IMPROVED All labs were reviewe. K was 3.2 yesterday>> 3.4 today. Likely from N/V and from hemodilution while here. She got K riders and po KCl Plan: Follow BMP daily and replace K if needed (6) Hypomagnesemia Assessment/Plan: IMPROVED Mg was low yesterday at 1.5. Likely from poor oral intake related to nausea. I ordered a Mg IV rider Today Mg is low-normal at 1.9 Plan: Follow Mg daily and replace if needed (7) Tachycardia Assessment/Plan: RESOLVED When the patient had several fever spikes of 39.3 C, her heart rate james to 150- 160. I gave her saline boluses and kept maintenance fluid rate high at 150 cc/hr. She got 1 dose of iv push Diltiazem when HR reached 170 . Her TSH and free T4 came back WNL An Echo was ordered (but the extractions technician could not get to it on Sun, and today is Sun and we have no Echo service until ). VS were reviewed. Plan: Tylenol and Motrin are both ordered to give for pain and for fever control I will taper down then stop her IV fluids OK to stop Telemetry (8) Sepsis due to gram-negative UTI Assessment/Plan: SEPSIS HAS RESOLVED She met criteria for sepsis, right after being admitted: she spiked a fever of 39.1 and was tachy with a heart rate of 160. Her WBC was 22 and procalcitonin was 12. Plan: Cont treating the bacteremia Cont IV fluids given the fever and N/V. I de-escalated the diet due to recurrence of nausea, and she wants this continued Cont Tylenol and Motrin for fever reduction, and Zofran prn N/V - Current Meds Current Meds: Current Medications Generic Name Dose Route Start Last Admin Trade Name Freq PRN Reason Stop Dose Admin Acetaminophen 650 mg 03/01/23 17:24 03/05/23 08:48 Acetaminophen 325 Mg Tablet PO 650 mg Q4HR PRN Administration Pain 1 to 4, or Fever Meropenem 1 gm/ Sodium 100 mls @ 200 mls/hr 03/01/23 18:00 03/05/23 11:15 Chloride IV Infused Q8H DAYSI Infusion Ibuprofen 600 mg 03/01/23 18:59 03/05/23 13:17 Ibuprofen 600 Mg Tablet PO 600 mg Q6HR PRN Administration Pain or Fever > 38C (100.4F) Ondansetron HCl 4 mg 03/01/23 17:24 03/03/23 17:02 Ondansetron 4 Mg/2 Ml Vial IVP 4 mg Q6HR PRN Administration Nausea / Vomiting Oxycodone HCl 5 mg 03/05/23 10:16 03/05/23 11:05 Oxycodone 5 Mg Tablet PO 5 mg Q4HR PRN Administration Moderate Pain (Level 4-6) Saccharomyces Boulardii 250 mg 03/02/23 10:03 03/05/23 08:48 Saccharomyces Boulardii 250 Mg Capsule PO 250 mg BIDWM DAYSI Administration Sodium Chloride 10 ml 03/01/23 17:24 03/05/23 10:43 Sodium Chloride Flush 0.9% 10 Ml Syringe IVP 10 ml PRN PRN Administration NEEDED PER PROVIDER ORDERS Sodium Chloride 10 ml 03/02/23 01:00 03/05/23 08:46 Sodium Chloride Flush 0.9% 10 Ml Syringe IVP Not Given 0100,0900,1700 DAYSI - Lab Result Fish Bone Diagrams: 03/05/23 04:48 03/05/23 04:48 - Additional Planning My Orders: My Active Orders 03/05/23 08:33 Dextrose 5%-0.9% NaCl [D5ns] 1,000 ml IV TKO 03/05/23 08:34 HYDROmorphone 1MG CARP [Dilaudid 1Mg Carp] 0.5 mg IVP Q2HR PRN 03/05/23 08:35 Out of bed 4+ hours [RC] QID 03/05/23 10:16 oxyCODONE [Roxicodone] 5 mg PO Q4HR PRN 03/06/23 05:00 BMP - BASIC METABOLIC PANEL [CHEM] DAILYLAB CBC - COMP BLD CT W/AUTO DIFF [HEME] DAILYLAB MAGNESIUM [CHEM] DAILYLAB PHOSPHORUS [CHEM] DAILYLAB Subjective - Subjective Patient Reports: Feeling Better ( at bedside interprets, which clarissa agrees to. Pt feels better: R flank pain and R groin pain now 1 to 4, but when she changes position she gets a stab of 7/10 pain.) Objective Vital Signs: Vital Signs - 24 hr 03/04/23 03/04/23 03/05/23 21:00 23:39 04:47 Temperature 37.0 C 38.0 C H 36.9 C Heart Rate [ 90 102 H 90 Brachial] Respiratory 16 20 18 Rate Blood Pressure 122/74 114/72 122/74 [Right Brachial artery] O2 Saturation 97 96 95 03/05/23 03/05/23 03/05/23 09:00 13:00 16:18 Temperature 37.1 C 36.7 C 36.7 C Heart Rate [ 84 92 81 Brachial] Respiratory 16 16 16 Rate Blood Pressure 118/71 122/77 114/68 [Right Brachial artery] O2 Saturation 96 99 95 Oxygen O2 Source Room air I&O (Last 24 Hrs): Intake and Output Totals x24h 03/03/23 03/04/23 03/05/23 23:59 23:59 23:59 Intake Total 3563.386 3533.614 2741.232 Balance 3563.386 3533.614 2741.232 General: Alert, Oriented x3, No acute distress HEENT: EOMI, Mucous membr. moist/pink Neck: Supple, No JVD Neuro: Alert, Non Focal Cardiovascular: Regular rate, No murmurs Respiratory: No respiratory distress, Breath sounds nml Abdomen: Normal bowel sounds, Soft, No tenderness, Other (Mild R flank tenderness) Extremities: No clubbing, No edema, No tenderness/swelling - Results Results: Laboratory Results WBC 6.4 x10^3/uL (4.8-10.8) 03/05/23 04:48 RBC 3.85 10^6/uL (4.20-5.40) L 03/05/23 04:48 Hgb 10.9 g/dL (12.0-16.0) L 03/05/23 04:48 Hct 33.0 % (37.0-47.0) L 03/05/23 04:48 MCV 85.7 fL (81.0-99.0) 03/05/23 04:48 MCH 28.3 pg (27.0-31.0) 03/05/23 04:48 MCHC 33.0 g/dL (32.0-36.0) 03/05/23 04:48 RDW 14.6 % (12.0-15.0) 03/05/23 04:48 Plt Count 169 10^3/uL (130-450) 03/05/23 04:48 MPV 10.3 fL (7.9-10.8) 03/05/23 04:48 Neut # (Auto) 2.7 10^3/uL (1.5-6.6) 03/05/23 04:48 Lymph # (Auto) 3.0 10^3/uL (1.5-3.5) 03/05/23 04:48 [place] # (Auto) 0.5 10^3/uL (0.0-1.0) 03/05/23 04:48 Eos # (Auto) 0.1 10^3/uL (0.0-0.7) 03/05/23 04:48 Baso # (Auto) 0.0 10^3/uL (0.0-0.1) 03/05/23 04:48 Absolute Nucleated RBC 0.00 x10^3/uL 03/05/23 04:48 Total Counted 100 03/01/23 17:17 Band Neuts % (Manual) 7 % (0-10) 03/01/23 17:17 Abnorm Lymph % (Manual) 0 % 03/01/23 17:17 Nucleated RBC % 0.0 /100WBC 03/05/23 04:48 Neutrophils # (Manual) 17.5 10^3/uL (1.5-6.6) H 03/01/23 17:17 Lymphocytes # (Manual) 3.4 10^3/uL (1.5-3.5) 03/01/23 17:17 Monocytes # (Manual) 0.4 10^3/uL (0.0-1.0) 03/01/23 17:17 Eosinophils # (Manual) 0.0 10^3/uL (0-0.7) 03/01/23 17:17 Basophils # (Manual) 0.0 10^3/uL (0-0.1) 03/01/23 17:17 Differential Comment MANUAL DIFFERENTIAL 03/01/23 17:17 Platelet Estimate DECREASED (<130,000) (NORMAL) 03/01/23 17:17 Platelet Morphology NORMAL APPEARANCE (NORMAL) 03/01/23 17:17 RBC Morph Micro Appear NORMAL APPEARANCE (NORMAL) 03/01/23 17:17 Sodium 136 mmol/L (135-145) 03/05/23 04:48 Potassium 3.4 mmol/L (3.5-4.5) L 03/05/23 04:48 Chloride 106 mmol/L (101-111) 03/05/23 04:48 Carbon Dioxide 22 mmol/L (21-32) 03/05/23 04:48 Anion Gap 8.0 (6-13) 03/05/23 04:48 BUN 6 mg/dL (6-20) 03/05/23 04:48 Creatinine 0.5 mg/dL (0.6-1.3) L 03/05/23 04:48 Estimated GFR (MDRD) 144 (>89) 03/05/23 04:48 Glucose 109 mg/dL (74-104) H 03/05/23 04:48 Lactic Acid 1.2 mmol/L (0.5-2.2) 03/01/23 23:46 Calcium 8.3 mg/dL (8.5-10.3) L 03/05/23 04:48 Phosphorus 3.1 mg/dL (2.5-5.0) 03/05/23 04:48 Magnesium 1.9 mg/dL (1.7-2.3) 03/05/23 04:48 Total Bilirubin 0.7 mg/dL (0.2-1.0) 03/01/23 17:17 AST 33 IU/L (10-42) 03/01/23 17:17 ALT 51 IU/L (10-60) 03/01/23 17:17 Alkaline Phosphatase 148 IU/L (42-121) H 03/01/23 17:17 Total Protein 5.9 g/dL (6.4-8.9) L 03/01/23 17:17 Albumin 3.1 g/dL (3.2-5.5) L 03/05/23 04:48 Globulin 2.6 g/dL (2.1-4.2) 03/01/23 17:17 Albumin/Globulin Ratio 1.3 (1.0-2.2) 03/01/23 17:17 Lipase 25 U/L (11-82) 03/01/23 17:17 Procalcitonin Immunoas 5.61 ng/mL (<0.5) H* 03/03/23 05:49 TSH 4.03 uIU/mL (0.34-5.60) 03/03/23 05:49 Free T4 Direct 1.17 ng/dL (0.58-1.64) 03/03/23 05:49 Prolactin 53.93 ng/mL 03/04/23 05:47 Urine Color YELLOW 03/01/23 17:22 Urine Clarity HAZY (CLEAR) 03/01/23 17:22 Urine pH 7.0 PH (5.0-7.5) 03/01/23 17:22 Ur Specific [place] 1.020 (1.002-1.030) 03/01/23 17:22 Urine Protein 30 mg/dL (NEGATIVE) H 03/01/23 17:22 Urine Glucose (UA) NEGATIVE mg/dL (NEGATIVE) 03/01/23 17:22 Urine Ketones NEGATIVE mg/dL (NEGATIVE) 03/01/23 17:22 Urine Occult Blood MODERATE (NEGATIVE) H 03/01/23 17:22 Urine Nitrite NEGATIVE (NEGATIVE) 03/01/23 17:22 Urine Bilirubin NEGATIVE (NEGATIVE) 03/01/23 17:22 Urine Urobilinogen 0.2 (NORMAL) E.U./dL (NORMAL) 03/01/23 17:22 Ur Leukocyte Esterase NEGATIVE (NEGATIVE) 03/01/23 17:22 Urine RBC TNTC /HPF (0-5) H 03/01/23 17:22 Urine WBC 11-25 /HPF (0-5) H 03/01/23 17:22 Ur Squamous Epith Cells FEW Squamous (<= Few) 03/01/23 17:22 Amorphous Sediment Few /LPF 03/01/23 17:22 Urine Bacteria Few /HPF (None Seen) 03/01/23 17:22 Ur Microscopic Review INDICATED 03/01/23 17:22 Urine Culture Comments INDICATED 03/01/23 17:22 Sepsis Event Note (H) - Evaluation Current Stage of Sepsis: Sepsis - Sepsis Criteria Sepsis Criteria: Recorded Heart Rate greater than 90 bpm, WBC count greater than 12,000 or less than 4000
[2023-03-06] MEDS: SODIUM CHLORIDE FLUSH 0.9% 10 ML SYRINGE IVP SCH ×4 (02:31→22:59)
[2023-03-06] MEDS: MEROPENEM 1 GM in SODIUM CHLORIDE 0.9% MINIBAG 100 ML IV SCH ×2 (02:31→09:09)
[2023-03-06 05:45] LABS: BASOPHILS % (AUTO) 0.5 %; EOSINOPHILS # (AUTO) 0.2 10^3/uL (0.0-0.7); EOSINOPHILS % (AUTO) 2.1 %; HGB - HEMOGLOBIN 10.5 g/dL (12.0-16.0); LYMPHOCYTES # (AUTO) 3.7 10^3/uL (1.5-3.5); LYMPHOCYTES % (AUTO) 49.3 %; MEAN CORPUSCULAR HEMOGLOBIN 27.9 pg (27.0-31.0); MEAN CORPUSCULAR HGB CONC 32.8 g/dL (32.0-36.0); MEAN CORPUSCULAR VOLUME 85.1 fL (81.0-99.0); MONOCYTES # (AUTO) 0.7 10^3/uL (0.0-1.0); MONOCYTES % (AUTO) 8.9 %; NEUTROPHILS # (AUTO) 2.8 10^3/uL (1.5-6.6); NEUTROPHILS % (AUTO) 36.8 %; NRBC ABSOLUTE COUNT (AUTO) 0.02 x10^3/uL; NUCLEATED RED BLOOD CELLS AUTO 0.3 /100WBC; PLT - PLATELET COUNT 237 10^3/uL (130-450); RED BLOOD COUNT 3.76 10^6/uL (4.20-5.40); RED CELL DISTRIBUTION WIDTH 14.6 % (12.0-15.0); WHITE BLOOD COUNT 7.5 x10^3/uL (4.8-10.8)
[2023-03-06 06:01] LABS: CALCIUM 8.6 mg/dL (8.5-10.3); CREATININE 0.5 mg/dL (0.6-1.3); PHOSPHORUS 3.3 mg/dL (2.5-5.0); POTASSIUM 3.8 mmol/L (3.5-4.5)
[2023-03-06] MEDS: SACCHAROMYCES BOULARDII 250 MG CAPSULE PO SCH ×2 (09:08→16:21)
[2023-03-06] MEDS: IBUPROFEN 600 MG TABLET PO PRN ×3 (09:09→22:59)
[2023-03-06] MEDS ORDERED: levoFLOXacin 250 MG TABLET PO SCH ×2 (10:00→15:30)
[2023-03-06] MEDS: ACETAMINOPHEN 325 MG TABLET PO PRN (12:00)
--- NOTE | 2023-03-06 13:24 | PROVIDER PROGRESS NOTE ---
Progress Note March 06, 2023 1:21 PM Patient says that she is doing okay. She was very nauseated yesterday so she is on a minced moist diet because of nausea. Wonders if she can eat regular food today. No chest pain, palpitations. Just feels short of breath and fatigue all the time. Exam: Temperature 37, heart rate 97, blood pressure 127/63, respirations 16. She is 97% on room air. She is telling the nurse that she has flank pain at a 2 out of a 10. Short statured female who speaks only Korean. I am bilingual and able to speak to the patient appropriately. Neck is supple Lungs are clear to auscultation and percussion Regular rate and rhythm Abdomen is soft, nontender, normal bowel sounds, nondistended. Extremities without edema Patient is able to get up from bed to chair on her own without ataxia. Able to go to the bathroom and get up from the toilet and walk to the sink to wash her hands. All of this without tachypnea, respiratory distress. Sodium 136, potassium 3.8. Yesterday potassium was 3.4 supplemented and she is now normal. BUN and creatinine are normal. Calcium, phosphorus, magnesium are normal. White cell count has been normal since March 04. She is 7.5 today. Hemoglobin 10.5. She was 12 on admission. Suspect dilutional effect in blood draws. Platelets 237. She was thrombocytopenic on admission at 127. Lowest was 87,000 on March 03 and has bounced back up to 237 today. Assessment/Plan - Problem List (1) E coli bacteremia Assessment/Plan: Her blood cultures turned positive, that were drawn at the first ER visit. The patient was called back into hosp 03/01, for treatment with IV antibiotics The repeat bld cx drawn at return to ER, also grew Ecoli (all labs were reviewed). After she defervesced, a second set of bld cx were drawn yest 03/04, which are neg to date. Sensitivities have returned for ESBL E. coli that is sensitive to meropenem as well as quinolones.IV fluids were stopped yesterday. Plan: Discontinue IV meropenem and changed to p.o. Levaquin. Cont probiotic Cont Tylenol plus Motrin for fever reduction and give for mild pain Monitor for recurrence of infection with fever, white cell count elevation as my markers I let the patient know that she should be able to go home tomorrow if there are no fever or elevated white cell count. She will need a total of approximately 7 to 10 days of antibiotics because of the bacteremia and the pyelonephritis. She is day #6 today. (2) ESBL (extended spectrum beta-lactamase) producing bacteria infection Assessment/Plan: Her E. coli blood cx is a Class A ESBL-producing E. coli that has CTX-M gene. The sensitivities are back and this E coli is resistant to many antibiotics, however it is sensitive to Ertapenem, Cipro and Levaquin. Plan: Changed to p.o. Levaquin today, stop IV meropenem Course of antibx will be 10-14 days total The microbiology lab report advised an ID consult. We were not able to reach out to a larger facility to review the case (3) E. coli UTI (urinary tract infection) Qualifiers: Indwelling urinary catheter type: unspecified Assessment/Plan: The urine culture that was obtained in the ER is growing the same ESBL-producing E coli, as in the blood culture Plan: As above in # 1 & 2 Cont pain medications of Tylenol and Dilaudid prn and Pyridium for dysuria (4) Pyelonephritis Assessment/Plan: As per findings on CT imaging Plan: Cont pain medications of Tylenol and/or Motrin prn mild pain, Oxycodone for moderate pain, and iv Dilaudid prn severe pain and Pyridium was ordered for her dysuria Cont antibx to treat the underlying infection Diet was changed at her request because of her nausea. Today and will resume normal diet (5) Hypokalemia Assessment/Plan: IMPROVED All labs were reviewe. K was 3.2>> 3.4 Likely from N/V and from hemodilution while here. She got K riders and po KCl And today her potassium is normal. Plan: Follow BMP daily and replace K if needed (6) Hypomagnesemia Assessment/Plan: IMPROVED Mg was low at 1.5. And was treated with a magnesium rider. Magnesium follow-up was normal levels. Plan: Follow Mg daily and replace if needed (7) Tachycardia Assessment/Plan: RESOLVED When the patient had several fever spikes of 39.3 C, her heart rate james to 150- 160. I gave her saline boluses and kept maintenance fluid rate high at 150 cc/hr. She got 1 dose of iv push Diltiazem when HR reached 170 . Her TSH and free T4 came back WNL An Echo was ordered (but the pet care technician could not get to it on Fri. Echo possibly done today. Plan: Tylenol and Motrin are both ordered to give for pain and for fever control IV fluids discontinued. Telemetry is continued. (8) Sepsis due to gram-negative UTI Assessment/Plan: SEPSIS HAS RESOLVED She met criteria for sepsis, right after being admitted: she spiked a fever of 39.1 and was tachy with a heart rate of 160. Her WBC was 22 and procalcitonin was 12.With IV antibiotics and IV fluid resuscitation, the patient's sepsis symptoms have resolved. It is now up to completing a 10 to 14-day course of antibiotics in the outpatient setting.
[2023-03-06] MEDS: levoFLOXacin 250 MG TABLET PO SCH (16:20)
[2023-03-07] MEDS: ACETAMINOPHEN 325 MG TABLET PO PRN (01:17)
--- NOTE | 2023-03-07 07:41 | Discharge Plan ---
Discharge Plan Problem Reviewed?: Yes Disposition: Home, Self Care Condition: Stable Prescriptions: levoFLOXacin [Levaquin] 750 mg PO DAILY #21 tab Diet: Regular Activity Restrictions: Activity as Tolerated Shower Restrictions: No Driving Restrictions: No Health Concerns: No tiene antecedentes de enfermedad grave y acudi a urgencias con dolor abdominal, dolor en flanco derecho, dolor al orinar y fiebre. Descubrimos que jazzy trini infeccin renal en el lado derecho donde crecan bacterias resistentes a muchos antibiticos. Plan of Treatment: Recibiste 7 zarate de antibiticos. Josef debido a que la infeccin tambin pas al torrente sanguneo desde el rin, es necesario mando antibiticos sangeetha hasta 14 zarate. Por lo tanto, deber mando Levaquin trini vez al da sangeetha los prximos 7 zarate. Levaquin son comprimidos de 250 mg, mando 3 comprimidos trini vez al da. Debido a que esto puede provocar diarrea, tome diariamente un probitico de venta hunter. Consulte a mcclellan mdico de cabecera en las prximas 1 a 2 semanas para asegurarse de que mcclellan infeccin est respondiendo al tratamiento y que est desapareciendo No Smoking: If you smoke, Please STOP! Call for help.
[2023-03-07] MEDS: SACCHAROMYCES BOULARDII 250 MG CAPSULE PO SCH (08:45)
[2023-03-07] MEDS: levoFLOXacin 250 MG TABLET PO SCH (08:45)
[2023-03-07 08:52] VITALS: BP 121/77; O2SAT 93
--- NOTE | 2023-03-07 19:12 | DISCHARGE SUMMARY ---
"Discharge Summary Admit Date: 03/01/23 Discharge Date: 03/07/23 Discharging Provider: Val Berkowitz MD Primary Care Provider: Nadiya Pyle Code Status: Attempt Resuscitation Condition at Discharge: Stable Discharge Disposition: 01 Home, Self Care - DIAGNOSES Discharge Diagnoses with Status of Each Condition: 1. Sepsis 2. ESBL E. coli pyelonephritis 3. ESBL E. coli bacteremia 4. Sinus tachycardia 5. Hypomagnesemia 6. Hypokalemia - HPI History of Present Illness: he initial history was obtained with a historical interpreter. I was able to speak to her who is bedside who interpreted for us, which the patient agreed to. This is a 32-year-old Cymro-speaking female who has a negative past history. She presented to the ER last night with complaints of several days of abdominal pain, R flank pain, dysuria and fever and chills. She was tachycardic and febrile. She received defervesced and heart rate improved with iv fluids and work-up showed WBC of 17, normal Lactic Acid of 1.7 then and R-sided pyelonephritis and ureteritis, with no stone on CT imaging. She had cultures drawn, was given Rocephin and was discharged to take Cefpodoxime. Today 2 of 2 blood cultures turned positive for E. coli. It is a Class A ESBL-producing E. coli that has CTX-M gene. Patient was called back to the ER today. She had vomited one today, is still having R flank pain and still having fever of 39.2 and HR is 120, WBC 21.4 w/ 17.5% neutr, Lactic Acid is normal at 2.0, but Procalcitonin is very high at 12. She was recultured and administered empiric iv Meropenem. The ED provider then spoke to me about this patient. She will be admitted for treating ESBL E. coli bacteremia from a pyelonephritis source. She states that she does not have a history of UTIs. However [place]. She states that there were so many people sick around her that she thinks she may have acquired carrier status for many different bugs on her body. - CONSULTS | PROCEDURES Procedures: March 01 blood culture with ESBL E. coli in arm and central line March 01 urine culture with ESBL E. coli March 04 blood culture negative March 06, 2023 echocardiogram normal with ejection fraction 60% - HOSPITAL COURSE Hospital Course: CT imaging was done before the patient was admitted. This was in a separate account and there is no obstruction. Sepsis criteria gradually resolved with senna tachycardia being the last 1 to eventually go away. She was placed on meropenem. Sensitivities became available and she was changed to oral Levaquin 2 days before discharge without any recurrence of fever or pain or elevated white cell count. Hypokalemia was supplemented and normalized. As well as hypomagnesemia. Patient has significant flank pain with her infection. She gradually improved with regards to fever, white cell count. No oxygen requirement. [place] she was able to go home. I have asked her to follow-up with her primary care provider and see her provider in the next 1 to 2 weeks. At discharge she is 4 foot 8 inches tall, 64.5 kg. 37.4 temp. Pulse 97. Blood pressure 121/77. Respirations 18. 93% on room air. She is a female that does not speak Syriac. I am bilingual. Discharge instructions were given for her to take Levaquin until prescription ended. She is also to take [id number] probiotic. Toradol had been initially called in but never picked up and I verified that with the pharmacy. Neck was supple. Lungs were clear. Regular rate and rhythm. Abdomen is soft, nontender but she still has flank pain. She grimaces a little bit when I palpate or percuss her flank. Extremities without edema. She is ambulating in the room, no assist. Eating 100% of her meals. Greater than 30 minutes was spent coordinating discharge This document was made in part using voice recognition software. While efforts are made to proofread this document, sound alike and grammatical errors may occur. - ALLERGIES Allergies/Adverse Reactions: Allergies Allergy/AdvReac Type Severity Reaction Status Date / Time No Known Drug Allergies Allergy Verified 03/01/23 17:06 - MEDICATIONS Home Medications: Ambulatory Orders Medication Instructions Recorded Confirmed Omeprazole Magnesium 20 mg PO BID 02/13/23 03/03/23 Ondansetron Odt [Zofran Odt] 4 mg TL Q6H PRN #10 tablet 03/01/23 03/02/23 Ketorolac [Toradol] 10 mg PO Q6H PRN #20 tablet 03/07/23 Saccharomyces Boulardii [Florastor] 250 mg PO BIDWM cap 03/07/23 levoFLOXacin [Levaquin] 750 mg PO DAILY #21 tab 03/07/23 - LABS Result Diagrams: 03/06/23 04:47 03/06/23 04:47 - SEPSIS Current Stage of Sepsis: Sepsis Sepsis Criteria: Recorded Heart Rate greater than 90 bpm, WBC count greater than 12,000 or less than 4000"
== END 2023-03-07 09:10 | disposition home or self-care (01) | DRG 872 ==
LOC: ED 16:49 → MS2 17:24
PROVIDERS: ADMIT Internal Medicine; ATTEND Specialist
DX: A41.51 Sepsis due to Escherichia coli [E. coli] (principal); N12 Tubulo-interstitial nephritis, not specified as acute or chronic; B96.20 Unspecified Escherichia coli [E. coli] as the cause of diseases classified elsewhere; E83.42 Hypomagnesemia; E87.6 Hypokalemia; R00.0 Tachycardia, unspecified; R11.0 Nausea; K21.9 Gastro-esophageal reflux disease without esophagitis; Z79.899 Other long term (current) drug therapy
CPT/HCPCS: 36415; 74177; 80048; 80053; 81001; 81025; 82040; 83605; 83690; 83735; 84100; 84145; 84146; 84439; 84443; 85025; 87040; 87077; 87086; 87150; 87181; 93306; 96365; 96366; 96367; 96375; 99285; A9270; J1170; J2185; Q9967; 81003

== ENCOUNTER 2023-03-29 10:58 | Outpatient (CLI) | payer MEDICAID ==
[2023-03-29 14:50] LABS: BASOPHILS # (AUTO) 0.1 10^3/uL (0.0-0.1); BASOPHILS % (AUTO) 0.9 %; EOSINOPHILS # (AUTO) 0.2 10^3/uL (0.0-0.7); EOSINOPHILS % (AUTO) 1.8 %; HCT - HEMATOCRIT 37.7 % (37.0-47.0); HGB - HEMOGLOBIN 12.3 g/dL (12.0-16.0); LYMPHOCYTES # (AUTO) 2.9 10^3/uL (1.5-3.5); LYMPHOCYTES % (AUTO) 35.5 %; MEAN CORPUSCULAR HEMOGLOBIN 28.2 pg (27.0-31.0); MEAN CORPUSCULAR HGB CONC 32.6 g/dL (32.0-36.0); MEAN CORPUSCULAR VOLUME 86.5 fL (81.0-99.0); MEAN PLATELET VOLUME 9.5 fL (7.9-10.8); MONOCYTES # (AUTO) 0.6 10^3/uL (0.0-1.0); MONOCYTES % (AUTO) 6.7 %; NEUTROPHILS # (AUTO) 4.5 10^3/uL (1.5-6.6); NEUTROPHILS % (AUTO) 54.7 %; PLT - PLATELET COUNT 299 10^3/uL (130-450); RED BLOOD COUNT 4.36 10^6/uL (4.20-5.40); RED CELL DISTRIBUTION WIDTH 13.6 % (12.0-15.0); WHITE BLOOD COUNT 8.2 x10^3/uL (4.8-10.8)
[2023-03-29 15:00] LABS: ALBUMIN 4.4 g/dL (3.2-5.5); ALBUMIN/GLOBULIN RATIO 1.6 (1.0-2.2); BILIRUBIN,TOTAL 0.4 mg/dL (0.2-1.0); CALCIUM 9.5 mg/dL (8.5-10.3); CREATININE 0.6 mg/dL (0.6-1.3); POTASSIUM 3.8 mmol/L (3.5-4.5); TOTAL PROTEIN 7.2 g/dL (6.4-8.9)
[2023-03-29 15:10] LABS: BILIRUBIN,URINE NEGATIVE (NEGATIVE); GLUCOSE, URINE (UA) NEGATIVE (NEGATIVE); KETONES,URINE (UA) NEGATIVE (NEGATIVE); LEUKOCYTE ESTERASE, URINE NEGATIVE (NEGATIVE); NITRITE,URINE NEGATIVE (NEGATIVE); OCCULT BLOOD,URINE NEGATIVE (NEGATIVE); PROTEIN,URINE NEGATIVE (NEGATIVE); UROBILINOGEN,URINE 0.2 (NORMAL) E.U./dL (NORMAL)
[2023-03-29 15:18] LABS: CLARITY,URINE CLEAR (CLEAR)
[2023-03-29 15:28] LABS: BACTERIA,URINE Rare /HPF (None Seen); RBC,URINE None Seen /HPF (0-5); SQUAMOUS EPITHELIAL CELL,UR FEW Squamous (<= Few); WBC,URINE 0-3 /HPF (0-5)
== END 2023-03-29 10:59 | disposition home or self-care (01) ==
LOC: LAB.S 10:58
PROVIDERS: ATTEND Physician Assistant Medical
DX: N12 Tubulo-interstitial nephritis, not specified as acute or chronic (principal)
CPT/HCPCS: 36415; 80053; 81001; 85025; 87086

== ENCOUNTER 2023-11-01 15:06 | Outpatient (CLI) | payer MEDICAID ==
--- NOTE | 2023-11-01 16:44 | Ultrasound Report ---
PROCEDURE: Duplex Ext Veins Right INDICATIONS: R LEG PAIN TECHNIQUE: Real-time imaging, as well as color and pulse Doppler interrogation, were performed of the lower extr emity deep veins from the inguinal ligament to the popliteal fossa. Attempted visualization of the ca lf veins was performed. COMPARISON: None. FINDINGS: The deep veins are normally compressible, and free of intraluminal thrombus. Color and pu lse Doppler demonstrate normal phasic intraluminal flow. There is normal augmentation response to di stal compression maneuver. IMPRESSION: No deep venous thrombosis of the visualized lower extremity. Reviewed by: Geraldo Dominguez MD on 11/01/2023 4:43 PM PDT Approved by: Geraldo Dominguez MD on 11/01/2023 4:43 PM PDT Station ID: [id number]
== END 2023-11-01 15:07 | disposition home or self-care (01) ==
LOC: DI 15:06
PROVIDERS: ATTEND Nurse Practitioner Gerontology
DX: M79.604 Pain in right leg (principal)